=== PATIENT | female | born 1970 | race Caucasian/White ===

== ENCOUNTER 2022-01-25 10:14 | Outpatient (REF) | payer OTHER, SELFPAY ==
[2022-01-25 11:42] LABS: Creatinine Urine 159.73 mg/dL; Microalbum/Creatinine Ratio Ur 33.1 ug/mg cr
[2022-01-25 12:25] LABS: Cholesterol 180 mg/dL; HDL Cholesterol 45 mg/dL; LDL Cholesterol Calculated 114 mg/dl; Triglycerides 105 mg/dL
== END 2022-01-25 10:15 | disposition home or self-care (01) ==
LOC: HO.HMGCLDS 10:14
PROVIDERS: PCP Internal Medicine; Visit Provider Internal Medicine
DX: E11.65 Type 2 diabetes mellitus with hyperglycemia (principal); E66.01 Morbid (severe) obesity due to excess calories; Z68.35 Body mass index [BMI] 35.0-35.9, adult
CPT/HCPCS: 36415; 80061; 82043

== ENCOUNTER 2022-02-14 07:19 | Outpatient (REF) | payer OTHER, SELFPAY ==
--- NOTE | ~2022-02-14 | MM_ITS ---
EXAMINATION: MM SCREENING DIGITAL BREAST TOMOSYNTHESIS, BILATERAL CLINICAL INFORMATION: Screening. Asymptomatic. Age 51. No prior breast imaging. No known family history breast cancer. The lifetime risk of breast cancer based on the Tyrer-Cuzick Model is 11%. COMPARISON: None (current study represents initial baseline exam). TECHNIQUE: Digital breast tomosynthesis is performed in both the craniocaudal and mediolateral oblique views along with computer-aided detection (CAD). Synthesized 2D images are generated from the tomosynthesis. Additional exaggerated right CC view is provided. FINDINGS: There are scattered areas of fibroglandular density (ACR BI-RADS breast composition Category b). Breast tissue composition borders on heterogeneously dense. There is a circumscribed superficial lesion likely intradermal at the posterior 7:00 right breast measuring approximately 1.3 x 1.4 cm. As this represents initial baseline exam, patient will be recalled for targeted ultrasound to further characterize. There is mild right nipple retraction on MLO view. No visible none profile on CC view. The remainder of the breasts show no significant mass or architectural abnormality or abnormal calcifications. The axilla are unremarkable. MM/MM tomosynthesis screening BI IMPRESSION: Right: -Probable intradermal lesion posterior 7:00 right breast , 1.4 cm - will obtain ultrasound. -Mild right nipple retraction on MLO - will obtain additional views. Left: -No mammographic evidence of malignancy. ASSESSMENT: BI-RADS 0: Incomplete - Need Additional Imaging Evaluation RECOMMENDATION: 1. Additional views of the right breast (CC anterior- nipple in profile, ML anterior- nipple in profile). 2. Targeted ultrasound right breast. 3. Radiology department staff will contact the patient for additional imaging. This patient's information was entered into a reminder system with a target due date for their next mammogram.
== END 2022-02-14 07:20 | disposition home or self-care (01) ==
LOC: HO.MAMMO 07:19
PROVIDERS: PCP Internal Medicine; Visit Provider Internal Medicine
DX: Z12.31 Encounter for screening mammogram for malignant neoplasm of breast (principal)
CPT/HCPCS: 77063; 77067

== ENCOUNTER 2022-02-21 08:52 | Outpatient (RCR) | payer OTHER, SELFPAY | END 2022-03-13 16:28 | disposition home or self-care (01) | LOC: HO.WCC 08:52 | PROVIDERS: PCP Internal Medicine; Visit Provider Surgery | DX: E11.621 Type 2 diabetes mellitus with foot ulcer (principal); L97.512 Non-pressure chronic ulcer of other part of right foot with fat layer exposed; Z79.84 Long term (current) use of oral hypoglycemic drugs | CPT/HCPCS: 11042; 99212 ==

== ENCOUNTER 2022-03-26 14:59 | Outpatient (REF) | payer OTHER, SELFPAY ==
--- NOTE | ~2022-03-26 | MM_ITS ---
EXAMINATION: MM DIAGNOSTIC DIGITAL BREAST TOMOSYNTHESIS, RIGHT US DIAGNOSTIC ULTRASOUND BREAST, RIGHT CLINICAL INFORMATION: Recall from baseline exam for mild right nipple retraction, and circumscribed probable intradermal lesion posterior 7:00 right breast. COMPARISON: Mammography: 02/14/2022 (baseline). TECHNIQUE: Digital breast tomosynthesis is performed. 2D images are generated from the tomosynthesis. The following views are obtained: Right CC and right ML, nipple in profile. Ultrasound right breast is targeted to the nodule posterior 7:00 position. Grayscale imaging and color Doppler are performed without and with harmonics. FINDINGS: There are scattered areas of fibroglandular density (ACR BI-RADS breast composition Category b). The additional views right breast demonstrate no persistent nipple retraction and no retroareolar mass or architectural abnormality. Ultrasound right breast demonstrates circumscribed hypoechoic mass merging with the deep dermis measuring 1.5 x 1.0 x 1.4 cm and corresponding to the nodule 7:00 posterior position near inframammary fold. There is increased through-transmission of sound and expected claw sign with the deep dermis. No internal color flow. No hyperemia. Results are discussed with the patient at time of visit. Patient notes that the intradermal nodule has been present for years without change. MM/MM tomosynthesis added views R IMPRESSION: -Additional mammographic views anterior right breast show no abnormality. -Intradermal lesion 1.5 cm posterior 7:00 right breast near inframammary fold consistent with sebaceous cyst. ASSESSMENT: BI-RADS 2: Benign RECOMMENDATION: Routine annual mammography screening due in 12 months. This patient's information was entered into a reminder system with a target due date for their next mammogram.
== END 2022-03-26 15:00 | disposition home or self-care (01) ==
LOC: HO.MAMMO 14:59
PROVIDERS: Visit Provider Internal Medicine
DX: N63.13 Unspecified lump in the right breast, lower outer quadrant (principal)
CPT/HCPCS: 76642; 77061; 77065

== ENCOUNTER 2022-04-26 06:06 | Outpatient (REF) | payer OTHER, SELFPAY ==
[2022-04-26 11:54] LABS: Alanine Aminotransferase 14 U/L (0-31); Anion Gap 15 (12-20); Aspartate Amino Transferase 18 U/L (5-31); Blood Urea Nitrogen 19 mg/dL (9-16); Calcium 8.9 mg/dL (8.4-10.2); Carbon Dioxide 27 mmol/L (22-29); Chloride 100 mmol/L (96-108); Cholesterol 118 mg/dL; Estimated Glomerular Filt Rate > 60; Glucose Fasting 107 mg/dL (60-99); HDL Cholesterol 40 mg/dL; LDL Cholesterol Calculated 54 mg/dl; Potassium 4.4 mmol/L (3.3-5.1); Sodium 138 mmol/L (135-145); Triglycerides 120 mg/dL
[2022-04-26 11:59] LABS: Estimated Average Glucose 126 mg/dL
== END 2022-04-26 06:07 | disposition home or self-care (01) ==
LOC: HO.HMGCLDS 06:06
PROVIDERS: PCP Internal Medicine; Visit Provider Internal Medicine
DX: E66.01 Morbid (severe) obesity due to excess calories (principal); Z68.35 Body mass index [BMI] 35.0-35.9, adult; E11.65 Type 2 diabetes mellitus with hyperglycemia
CPT/HCPCS: 36415; 80048; 80061; 83036; 84450; 84460

== ENCOUNTER 2022-08-27 08:10 | Outpatient (REF) | payer OTHER, SELFPAY ==
[2022-08-28 16:57] LABS: HPV mRNA E6/E7 rflx Not Detected (Not Detected)
== END 2022-08-27 08:11 | disposition home or self-care (01) ==
LOC: HO.LNP 08:10
PROVIDERS: PCP Internal Medicine; Visit Provider Advanced Practice Midwife
DX: Z01.419 Encounter for gynecological examination (general) (routine) without abnormal findings (principal); Z11.51 Encounter for screening for human papillomavirus (HPV)
CPT/HCPCS: 87624; 88142

== ENCOUNTER 2022-09-12 09:10 | Outpatient (REF) | payer OTHER, SELFPAY ==
[2022-09-12 12:06] LABS: Alanine Aminotransferase 13 U/L (0-31); Aspartate Amino Transferase 21 U/L (5-31); Cholesterol 154 mg/dL; HDL Cholesterol 52 mg/dL; LDL Cholesterol Calculated 85 mg/dl; Triglycerides 85 mg/dL
[2022-09-12 12:22] LABS: Vitamin D 25-OH Total 19.3 ng/mL (>30)
[2022-09-12 12:58] LABS: Creatinine Urine 37.99 mg/dL
[2022-09-12 13:10] LABS: Microalbum/Creatinine Ratio Ur 2329.5 ug/mg cr
== END 2022-09-12 09:11 | disposition home or self-care (01) ==
LOC: HO.HMGCLDS 09:10
PROVIDERS: PCP Internal Medicine; Visit Provider Internal Medicine
DX: Z00.01 Encounter for general adult medical examination with abnormal findings (principal); I10 Essential (primary) hypertension; E11.65 Type 2 diabetes mellitus with hyperglycemia; E78.5 Hyperlipidemia, unspecified
CPT/HCPCS: 36415; 80061; 82043; 82306; 84450; 84460

== ENCOUNTER → 2023-04-04 07:30 | Outpatient (BNV) | payer OTHER, SELFPAY | PROVIDERS: PCP Internal Medicine; Visit Provider Radiology Diagnostic Radiology | DX: Z12.31 Encounter for screening mammogram for malignant neoplasm of breast (principal) | CPT/HCPCS: 77063; 77067 ==

== ENCOUNTER 2023-04-04 07:35 | Outpatient (REF) | payer OTHER, SELFPAY | END 2023-04-04 07:36 | disposition home or self-care (01) | LOC: HO.MAMMO 07:35 | PROVIDERS: PCP Internal Medicine; Visit Provider Internal Medicine | DX: Z12.31 Encounter for screening mammogram for malignant neoplasm of breast (principal) | CPT/HCPCS: 77063; 77067 ==

== ENCOUNTER 2023-05-07 12:28 | Day surgery (SDC) | payer OTHER, SELFPAY ==
--- NOTE | 2023-05-06 08:51 | HO.ANESPROP2 ---
HPI - Anesthesia Eval Consult details Narrative: 52yo F for Colonoscopy PMFSH Active Problems Active Problems: All Active Problems (Updated 09/12/22 @ 08:51 by Briana Slaughter MD) Obesity (BMI 30-39.9) (Acute) Diabetes mellitus without complication, without long-term current use of insulin (Acute) Essential hypertension (Acute) Dyslipidemia (Acute) Past Medical History Medical History (Updated 09/12/22 @ 08:51 by Briana Slaughter MD) Obesity (BMI 30-39.9) Diabetes mellitus without complication, without long-term current use of insulin Essential hypertension Dyslipidemia Plantar ulcer of right foot Gestational diabetes Family History Family History Maternal Grandmother Pancreatic cancer Maternal Grandfather Esophageal cancer Surgical History Surgical History Hx of tubal ligation History of Hx of appendectomy Social History Social History Household Members: Spouse Housing: House Patient Tobacco Use Status: Never used Tobacco e-Cigarette/Vaping Use: Never Used service: No Current occupational status: employed Sexual orientation: Straight/Heterosexual Gender identity: Female Cognitive needs: No Hearing needs: No Vision needs: Yes Meds Allergies Allergy/AdvReac Type Severity Reaction Status Date / Time amoxicillin AdvReac Mild Rash Verified 09/12/22 08:26 Exam Exam Date and Time: May 06, 2023 0851 Assessment and Plan Assessment Anesthesia Assessment: Chart Reviewed
[2023-05-07 11:54] VITALS: BMI 36.3
[2023-05-07 12:35] VITALS: BP 198/85; PULSE 88; RESP 20; TEMP 36.1; O2SAT 99
[2023-05-07 12:55] LABS: Glucose, Whole Blood 85 mg/dL (60-115)
[2023-05-07 13:00] VITALS: BP 151/56
[2023-05-07] MEDS: Lactated Ringers 1,000 ML 100 ML IVCONT (13:09)
--- NOTE | 2023-05-07 13:20 | P.CONAN_ITS ---
[facility] Active Problems Active Problems: All Active Problems (Updated 09/12/22 @ 08:51 by Briana Slaughter MD) Obesity (BMI 30-39.9) (Acute) Diabetes mellitus without complication, without long-term current use of insulin (Acute) Essential hypertension (Acute) Dyslipidemia (Acute) Past Medical History Medical History Obesity (BMI 30-39.9) Diabetes mellitus without complication, without long-term current use of insulin Essential hypertension Dyslipidemia Plantar ulcer of right foot Gestational diabetes Functional capacity: independent ambulation Patient : No Family History Family History Maternal Grandmother Pancreatic cancer Maternal Grandfather Esophageal cancer Family history of problems with anesthesia: No Surgical History Surgical History Hx of tubal ligation History of Hx of appendectomy History of Problems with Anesthesia: No Social History Social History Household Members: Spouse Housing: House Patient Tobacco Use Status: Never used Tobacco e-Cigarette/Vaping Use: Never Used Are you DNR?: No Advance Directives: No Advance Directives Information Provided: Yes Recently lost weight without trying: No Nutrition Risks: No Nutritional Risk service: No Current occupational status: employed Sexual orientation: Straight/Heterosexual Gender identity: Female Cognitive needs: No Hearing needs: No Vision needs: Yes Meds Allergies Allergy/AdvReac Type Severity Reaction Status Date / Time amoxicillin AdvReac Mild Rash Verified 09/12/22 08:26 Active Medications: Current Medications Lactated Ringer's (Lr) 1,000 mls @ 100 mls/hr IVCONT .Q10H KAYLAN Last Admin: 05/07/23 13:09 Dose: 100 mls/hr Exam Exam Date and Time: May 07, 2023 1320 Height,Weight and Vital Signs: Height 5 ft 7.5 in Weight 106.594 kg Last Vital Signs Temp 97 F 05/07/23 12:35 Pulse 88 05/07/23 12:35 Resp 20 05/07/23 12:35 BP 151/56 H 05/07/23 13:00 Pulse Ox 99 05/07/23 12:35 O2 Del Method Room Air 05/07/23 12:35 Pertinent Lab Results Pertinent Lab Results: Laboratory Tests 05/07/23 12:49 POC Glucose 85 Airway Mallampati Class: II TM Dist: >3cm Neck ROM: Full Heart: RRR Lungs: CTA Assessment and Plan Assessment Anesthesia Assessment: Anesthesia Plan Discussed Final Anesthetic Review Family History of Problems with Anesthesia: No History of Problems with Anesthesia: No NPO: Yes ASA Class: III Final Preanesthetic Review: Meds/Allgs Chart Reviewed, Consent Obtained/Reviewed and Anes Risks/Benef Reviewed Patient Risk: Low Procedure Risk: Low Anesthetic Plan Anesthetic Plan: MAC: Disposition: Standard PACU
--- NOTE | 2023-05-07 13:35 | MHC.SHP ---
Pre-Procedural Eval Section A Date of Service: 05/07/23 Section B Chief Complaint: Screening Details of Present Illness: see H*P no changes Relevant Family History (Specify if Yes): No Relevant Social History: None Medical History: No relevant PMH History of Previous Operations: No relevant previous surgery Allergies: Allergies Allergy/AdvReac Type Severity Reaction Status Date / Time amoxicillin AdvReac Mild Rash Verified 09/12/22 08:26 Review of Systems Sugical H&P ROS: Negative: Constitution, Cardiovascular, Respiratory, Neurological, Psychiatric, Hem-Onc, Allergic/Immunologic, Gastrointestinal, Genitourinary, Musculoskeletal, Integumentary, Endocrine and Eyes/Ears/Nose/Throat Exam Surgical H&P Exam: Normal: HEENT, Normal: Heart, Normal: Lungs, Normal: Extremities, Normal: Abdomen, Normal: Skin and Normal: Neurological Plan Diagnosis/Plan: Unchanged I have reviewed the history and physical and performed a pertinent physical examination on my patient. No changes have occurred unless specified. Time Spent With Patient Time: Total time managing care of this patient today ____ minutes.
--- NOTE | 2023-05-07 13:59 | PM.OP ---
Brief Operative Note Date of Service: 05/07/23 Pre-op diagnosis: screening Post-op diagnosis: same Surgeon: Ton Gonsalez Anesthesia: MAC Was an Patient Access Representative used for this Procedure?: No Estimated blood loss (mL): 0 Pathology: none sent Condition: stable Disposition: PACU
[2023-05-07 14:05] VITALS: BP 105/55; PULSE 76; RESP 16; TEMP 36.3; O2SAT 96
--- NOTE | 2023-05-07 14:05 | HO.POSTANES ---
Post Anesthesia Evaluation Post Anesthesia Evaluation Date of Service: 05/07/23 Vital Signs: Vital Signs Temp Pulse Resp BP Pulse Ox O2 Del Method 05/07/23 13:00 151/56 H 05/07/23 12:35 97 F 88 20 198/85 H 99 Room Air Anesthesia: Monitored Mental Status: Awake Pain Control: Satisfactory Nausea/Vomiting: None Hydration: Adequate Anesthesia-Related Issues: No Anes. Related Issues
[2023-05-07 14:20] VITALS: BP 143/68; PULSE 76; RESP 18; TEMP 36.6; O2SAT 98
--- NOTE | 2023-05-07 23:51 | OP_ITS ---
DATE OF SERVICE: 05/07/2023 SURGEON: Ton Gonsalez MD INDICATIONS: Colon cancer screening. PREOPERATIVE DIAGNOSIS: POSTOPERATIVE DIAGNOSIS: PROCEDURE PERFORMED: Colonoscopy to the terminal ileum. ESTIMATED BLOOD LOSS: COMPLICATIONS: ANESTHESIA: Monitored anesthesia care. ASSISTANTS: SPECIMENS: DESCRIPTION OF PROCEDURE: A history and physical was performed. The risks and benefits of the procedure were explained to the patient. Informed consent was obtained. The patient was placed in the left lateral decubitus position. A digital rectal exam was performed and was found to be normal. The Olympus pediatric video colonoscope was introduced into the rectum and advanced to the cecum. The cecum was identified by transillumination, palpation, and identification of ileocecal valve. Examination was performed. The scope was removed. She tolerated the procedure well and was returned to the recovery area in stable condition. FINDINGS: The terminal ileum was examined and appeared normal. The visualized colonic mucosa was normal. The quality of the prep was good. There was some liquid stool remaining in the right and transverse colon. This was washed and suctioned. No polyps were identified. The mucosa appeared normal. Retroflexed examination was normal. IMPRESSION: Normal colonoscopy. RECOMMENDATION: 1. Follow up as needed. 2. Repeat colonoscopy is recommended in 10 years for average risk individuals. MD HOLA Adame/ADELINEL / [id number]
== END 2023-05-07 14:50 | disposition home or self-care (01) ==
PROVIDERS: PCP Internal Medicine; Visit Provider Internal Medicine Gastroenterology
PROC: 0DJD8ZZ Inspection of Lower Intestinal Tract, Via Natural or Artificial Opening Endoscopic (ICD-10-PCS; CPT 45378; principal; 2023-05-07 13:40)
DX: Z12.11 Encounter for screening for malignant neoplasm of colon (principal); I10 Essential (primary) hypertension; E78.5 Hyperlipidemia, unspecified; E11.9 Type 2 diabetes mellitus without complications; E66.9 Obesity, unspecified; Z68.36 Body mass index [BMI] 36.0-36.9, adult; Z79.84 Long term (current) use of oral hypoglycemic drugs; Z79.899 Other long term (current) drug therapy; Z88.1 Allergy status to other antibiotic agents
CPT/HCPCS: 45378; 82947

== ENCOUNTER 2023-07-04 10:38 | Outpatient (REF) | payer OTHER, SELFPAY ==
[2023-07-04 13:37] LABS: Appearance Urine Cloudy; Color Urine Yellow; Glucose Urine UA Negative (Negative); Leukocyte Esterase Urine Moderate (2+) (Negative); Nitrite Urine Negative (Negative); UMIC TRIGGER UACC YES; Urine Blood Large (3+) (Negative); Urine Ketones Negative (Negative); Urine Protein 100 (2+) mg/dL (Neg-Trace)
[2023-07-04 13:40] LABS: Bacteria Urine 4+ (None Seen); Hyaline Casts Urine 0-2 /LPF (0-2); RBC Urine >20 /HPF (0-2); Squamous Epithelial Cell Urine 0-2 /HPF (0-2); UACC Culture Trigger YES; WBC Urine >50 /HPF (0-5)
[2023-07-04 14:19] LABS: Vitamin D 25-OH Total 46.6 ng/mL (>30)
== END 2023-07-04 10:39 | disposition home or self-care (01) ==
LOC: HO.HMGCLDS 10:38
PROVIDERS: PCP Internal Medicine; Visit Provider Internal Medicine
DX: E66.9 Obesity, unspecified (principal); E11.9 Type 2 diabetes mellitus without complications; I10 Essential (primary) hypertension; E78.5 Hyperlipidemia, unspecified; R30.0 Dysuria
CPT/HCPCS: 36415; 81001; 82306; 87086; 87088; 87186

== ENCOUNTER 2023-09-13 06:40 | Outpatient (REF) | payer OTHER, SELFPAY ==
[2023-09-13 11:29] LABS: Appearance Urine Clear; Color Urine Yellow; Glucose Urine UA Negative (Negative); Leukocyte Esterase Urine Small (1+) (Negative); Nitrite Urine Negative (Negative); PH 5.5 (5.0-9.0); Specific Gravity - Urine 1.015 (1.005-1.025); UMIC TRIGGER UACC YES; Urine Blood Trace (Negative); Urine Ketones Negative (Negative); Urine Protein 100 (2+) mg/dL (Neg-Trace)
[2023-09-13 11:35] LABS: Bacteria Urine 1+ (None Seen); Hyaline Casts Urine 0-2 /LPF (0-2); UACC Culture Trigger YES; WBC Urine >50 /HPF (0-5)
[2023-09-13 11:42] LABS: Creatinine Urine 84.78 mg/dL; Microalbum/Creatinine Ratio Ur 575.6 ug/mg cr (<30)
[2023-09-13 11:56] LABS: Estimated Average Glucose 94 mg/dL; Hemoglobin A1C 59.5644 umol/L; Hemoglobin A1c % 4.9 % (<6.0)
[2023-09-13 12:05] LABS: Alanine Aminotransferase 8 U/L (0-31); Anion Gap 15 (12-20); Aspartate Amino Transferase 18 U/L (5-31); Blood Urea Nitrogen 14 mg/dL (9-16); Calcium 9.2 mg/dL (8.4-10.2); Carbon Dioxide 22 mmol/L (22-29); Chloride 105 mmol/L (96-108); Cholesterol 99 mg/dL (<200); Estimated Glomerular Filt Rate > 60; Glucose Fasting 90 mg/dL (60-99); HDL Cholesterol 42 mg/dL (>40); LDL Cholesterol Calculated 42 mg/dL (<100); Potassium 4.1 mmol/L (3.3-5.1); Sodium 138 mmol/L (135-145); Triglycerides 76 mg/dL (<150)
== END 2023-09-13 06:41 | disposition home or self-care (01) ==
LOC: HO.HMGCLDS 06:40
PROVIDERS: PCP Internal Medicine; Visit Provider Internal Medicine
DX: Z00.01 Encounter for general adult medical examination with abnormal findings (principal); E11.65 Type 2 diabetes mellitus with hyperglycemia; I10 Essential (primary) hypertension; E66.9 Obesity, unspecified; E78.5 Hyperlipidemia, unspecified; R30.0 Dysuria
CPT/HCPCS: 36415; 80048; 80061; 81001; 82043; 82570; 83036; 84450; 84460; 87086; 87088; 87186

== ENCOUNTER 2023-09-16 07:57 | Outpatient (AMB) | payer OTHER, SELFPAY ==
[2023-09-16 08:15] VITALS: BP 140/88; PULSE 73; O2SAT 99; BMI 38.0
--- NOTE | 2023-09-16 08:15 | A.OFFPC_ITS ---
Vital Signs 09/16/23 08:15 Height 5 ft 8 in Weight 250 lb BMI 38.0 BP 140/88 H Blood Pressure Location Rt brachial Position Sitting Pulse 73 Pulse Source Pulse Oximeter Pulse Oximetry (%) 99 Oxygen Delivery Method Room Air Intake Visit Reasons: Annual PE Intake Note: Pt is here today for her PE: last pap 08/27/22, mammogram 04/04/23 and colonoscopy 05/07/23 Is last menstrual period known: Yes Last menstrual period: 05/31/23 Allergies amoxicillin Adverse Reaction (Mild, Verified 09/16/23 08:22) Rash Medication List - Last Reconciled 09/16/23 by Briana Slaughter MD blood-glucose meter (Yi Chang Ou Sai ITTouch Ultra2 Meter) As directed lancets test blood sugar twice a day lisinopril 5 mg PO DAILY metformin 1,000 mg PO BIDWMEAL OneTouch Ultra Test (blood sugar diagnostic) test blood sugar twice a day NS rosuvastatin 5 mg PO 2XW 90 days Tobacco use date assessed: 09/16/23 Dental Screening Dental Screen Date: 09/16/23 Did you have a dental visit in the last 12 months?: Yes Did you have a dental problem in the last 6 months where you did not have access to dental care?: Yes Was dental information given to patient?: Patient has dentist HPI Annual PE HPI Details 52-year-old lady here today for physical exam. She has diabetes mellitus currently on metformin 1000 mg 1 tablet twice a day, and has hyperlipidemia currently taking rosuvastatin 5 mg twice a week and takes lisinopril 5 mg once a day for hypertension. Her blood pressure is noted to be high in the last 2 visits. Denies any chest pain, lightheadedness, shortness of breath has been compliant with taking her medications and diet , alternate using the treadmill and her exercise bike, but gets frustrated that she has not losing weight... She is up-to-date with her screening mammogram, cervical cancer screening and colon cancer screening last diabetic retinopathy screening was done 02/28/2022 with no retinopathy seen. She has an appointment to see a new eye doctor in October 2023. She is perimenopausal, no hot flashes but last period was in May 2023. She has been feeling well but has been noticing swelling in both lower extremities especially at the end of work day, goes down when she elevates her legs. Denies any accompanying pain, no varicosities in lower extremity reported. [facility] Medical History Obesity (BMI 30-39.9) Diabetes mellitus without complication, without long-term current use of insulin Essential hypertension Dyslipidemia Plantar ulcer of right foot Gestational diabetes Surgical History Hx of tubal ligation History of Hx of appendectomy Family History Maternal Grandmother Pancreatic cancer Maternal Grandfather Esophageal cancer Social History Household Members: Spouse Housing: House Patient Tobacco Use Status: Never used Tobacco e-Cigarette/Vaping Use: Never Used service: No Current occupational status: employed Sexual orientation: Straight/Heterosexual Gender identity: Female Cognitive needs: No Hearing needs: No Vision needs: Yes Female Reproductive History Menstrual Date of last menstrual period: 05/31/23 Questionnaire PHQ-9 Over the last 2 weeks, how often have you been bothered by any of the following problems? 1. Little interest or pleasure in doing things: not at all 2. Feeling down, depressed, or hopeless: not at all 3. Trouble falling or staying asleep, or sleeping too much: not at all 4. Feeling tired or having little energy: not at all 5. Poor appetite or overeating: not at all 6. Feeling bad about yourself - or that you are a failure or have let yourself or your family down: several days 7. Trouble concentrating on things, such as reading the newspaper or watching television: not at all 8. Moving or speaking so slowly that other people could have noticed. Or the opposite - being so fidgety or restless that you have been moving around a lot more than usual: not at all 9. Thoughts that you would be better off or of hurting yourself in some way: not at all Total score: 1 Depression Screening Interpretation: Negative Depression Screening Done: Yes 38432 - PHQ-9 Billing: Yes Source: Developed by Drs. Sea Moran, Mookie Kingsley and colleagues, with an educational marquise from [employer]. Thrive Questionnaire Date Thrive assessed: 09/12/22 I am a: Patient What is your living situation today?: I have a steady place to live Within the past 12 months, did the food you bought not last and you didn't have the money to get more?: Never true Within the past 12 months, did you worry whether your food would run out before you got money to buy more?: Never true Do you have trouble paying for medicines?: No Do you have trouble getting transportation to medical appointments?: No Do you have trouble paying your heating and electricity bill?: No Do you have trouble taking care of your child, family member or friend?: No Do you have trouble with day-to-day activities such as bathing, preparing meals, shopping, managing finances, etc.?: No Are you currently unemployed and looking for a job?: No Are you interested in more education?: No Please select the resources that you would like help with: None THRIVE Score: 0 AUDIT C Alcohol Use Questionnaire (AUDIT-C) 1. How often do you have a drink containing alcohol?: Monthly or less 2. How many drinks containing alcohol do you have on a typical day when you are drinking?: 1 or 2 3. How often do you have six or more drinks on one occasion?: Never Total Score: 1 ROMEO-7 AMB Questionnaire ROMEO-7 Date ROMEO - 7 assessed: 09/16/23 Feeling nervous, anxious, or on edge: 0 = Not at all Not being able to stop or control worryin = Not at all Worrying too much about different things: 0 = Not at all Trouble relaxin = Not at all Being so restless that it is hard to sit still: 0 = Not at all Becoming easily annoyed or irritable: 0 = Not at all Feeling afraid as if something awful might happen: 0 = Not at all Total ROMEO-7 score (0-4 normal; 5-9 mild; 10-14 moderate; 15-21 severe): 0 Source: Developed by Drs. Sea Moran, Mookie Kingsley and colleagues, with an educational marquise from [employer]. ROMEO-7 Assessment Billing ROMEO-7 Assessment Tool: ROMEO-7 Assessment 48884 Review of Systems Const Denies body aches, Denies fatigue, Denies fever(s), Denies headache(s) and Denies weakness Eyes Denies change in vision ENT Denies dizziness, Denies headache(s), Denies nasal congestion, Denies nasal discharge and Denies sore throat Card Denies chest pain, Denies lightheadedness, Denies palpitations and Denies dyspnea Resp Denies chest congestion, Denies cough and Denies dyspnea GI Denies abdominal pain, Denies change in bowel habits and Denies heartburn Details: Recently treated for urinary tract infection in June 2023, still gets occasional running at end of urination. Denies hematuria, Denies urinary frequency, Denies hot flashes, Denies nipple discharge, Denies dysuria, Denies prolapse symptoms, Denies urinary urgency and Denies vaginal discharge Musc Reports no additional complaints Skin/Breast Details: No breast mass, no nipple discharge no breast pain, no rash Denies nipple discharge Neuro Denies dizziness, Denies headache(s) and Denies weakness Psych Reports no additional complaints Endo Denies fatigue, Denies polydipsia, Denies polyuria and Denies palpitations Олег/Lymph Reports no additional complaints Aller/Immun Reports no additional complaints Physical exam (Primary Care) BMI result Body Mass Index 38.0 BMI Assessment/Plan discussion: High BMI High, discussed plan: lifestyle, weight reduction, dietary and physical activity Tobacco/Smoking Status: Tobacco use Status Tobacco use date assessed 09/16/23 09/16/23 08:16 Patient Tobacco Use Status Never used Tobacco 09/16/23 08:16 e-Cigarette/Vaping Use Never Used 09/16/23 08:16 Depression Screening Interpretation: Negative Thrive Assessment: Date of Thrive Assessment Date Thrive assessed 09/12/22 09/16/23 08:16 Const General: comfortable, no acute distress and alert Nutritional Appearance: obese Orientation/consciousness: patient oriented x3 HENMT Head: Yes normocephalic and Yes atraumatic Ears: hearing grossly normal bilaterally, TM's normal bilaterally and EAC's normal General nose exam: Normal external nose present Face and sinus: Yes face symmetric Mouth: Normal oral and palatal mucosa present, tongue normal, oropharynx normal and moist mucous membranes Throat: Yes posterior oropharynx normal Eyes General: appearance normal, both eyes and all related structures Neck Other: Supple, no lymphadenopathy, thyroid gland nonpalpable Chest Chest palpation & inspection: normal inspection of the chest Breast/axilla inspection: normal inspection of the breasts Breast/axilla palpation: normal palpation of the breasts Resp Effort & Inspection: normal respiratory effort and able to speak in complete sentences Auscultation: clear to auscultation bilaterally Cardio Other: S1-S2 present regular rate and rhythm GI Other: Normal bowel sounds, soft, nontender, no mass palpated Auscultation: normal bowel sounds General: Yes no CVA tenderness and Yes deferred (Sees [facility] for her routine Pap and pelvic exam currently up-to-date) Back/Spine/Pelvis Back: no CVA tenderness and No back tenderness Skin Other: Goes to Dr. Reddy for her annual diabetes foot exam General skin exam: no rashes or lesions noted Neuro General: patient oriented x3, gait normal, tone normal, moves all extremities, Normal light touch and pain sensation, no focal motor deficits and CN's II-XI intact bilaterally Gait exam (Neuro): Normal gait present Extrem Other: Trace swelling ankles General: Yes full ROM, Yes no joint enlargement, Yes no calf tenderness and Yes normal gait Psych Appearance: grossly normal and well kempt Mental Status: mental status grossly normal Speech and movement: Normal speech and movement present Affect: normal affect Attitude: cooperative Thought process: Normal thought process present Thought content: Normal thought content present Office Procedures Flu Questionnaire Does the patient have a severe egg allergy?: No Does the patient have severe life threatening allergies?: No Does the patient have a fever or illness today?: No Has the patient ever had Guillain-C[place]an[place] Syndrome?: No Has the patient ever had any past reaction to a flu shot?: No Immunizations flu vacc [id number] 6mos up(PF) 60 mcg(15 mcgx4)/0.5 mL IM syringe Performing Provider: Briana Slaughter MD Performing Location: [facility] [place] [facility] Administered by: Sheila Elliott CMA on 09/16/23 08:54 Dose Route Admin Location Dispensed Lot Number Expiration Date NDC Etched Circuit Processor 0.5 mL IM Right Deltoid 0.5 mL [id number] 02/15/24 90624-114-11 [employer] VIS Given Date VIS Provided VIS Publication Date 09/16/23 Single Vaccine 21 Eligibility Eligibility Date Funding Source Not VFC Eligible 09/16/23 Private Results Reviewed Results Reviewed: SPEC : [id number] ALEXANDER: 09/13/23 STATUS: COMP REQ : [id number] RECD: 09/13/23-[address]: Briana Slaughter MD COMP: 09/13/231205 ENTERED: 09/13/[address]: ORDERED: Met Prof Fast, AST, ALT, Lipid Panel Test Result Flag Reference Sodium 138 135-145 mmol/L Potassium 4.1 3.3-5.1 mmol/L CL 105 96-108 mmol/L CO2 22 22-29 mmol/L Gap 15 12-20 BUN 14 9-16 mg/dL Creat 0.72 0.5-1.4 mg/dL EGFR > 60 NOTE: For -British individuals, multiply the result by 1.210. Chronic Kidney Disease: Estimated GFR < 60 mL/min/1.73m2 Severe Kidney Disease: Estimated GFR < 15 mL/min/1.73m2 FBS 90 60-99 mg/dL CA 9.2 8.4-10.2 mg/dL AST (GOT) 18 5-31 U/L ALT (GPT) 8 0-31 U/L Triglyceride 76 <150 mg/dL Desirable Triglyceride: less than 150 mg/dL Borderline High Triglyceride 150-199 mg/dL High Triglyceride: 200-499 mg/dL Very High Triglyceride: greater than or equal to 5OO mg/dL Cholesterol 99 <200 mg/dL Desirable Cholesterol: less than 200 mg/dL Borderline High Cholesterol: 200-239 mg/dL High Cholesterol: greater than 239 mg/dL LDL Calculated 42 <100 mg/dL Desirable LDL: less than 100 mg/dL Near Optimal/Above Optimal LDL: 110-129 mg/dL Borderline High LDL: 130-159 mg/dL High LDL: 160-189 mg/dL Very High LDL: greater than or equal to 190 mg/dL HDL 42 >40 mg/dL Desirable HDL: greater than 40 mg/dL Note: This HDL assay may give artificially ENTERED: 09/13/[address]: ORDERED: UACC w Micros QUERIES: Source: Urine, Clean Catch Test Result Flag Reference Ur Color Yellow Ur Appear Clear PH 5.5 5.0-9.0 Ur Glu Negative Negative mg/dL Urine Blood Trace H Negative Spec [place] Ur 1.015 1.005-1.025 Urine Protein 100 (2+) H Neg-Trace mg/dL Urine Ketones Negative Negative mg/dL Ur Nitrite Negative Negative Ur Katina Esterase Small (1+) H Negative Ur RBC 6-10 H 0-2 /HPF Ur WBC >50 H 0-5 /HPF Ur Squam Epi 6-10 0-2 /HPF Ur Bact 1+ None Seen Ur Hyaline Architectural Designer 0-2 0-2 /LPF Laboratory Tests 09/13/23 06:46 Urine Creatinine 84.78 Urine Microalbumin 488.0 Microalb/Creat Ratio 575.6 H Assessment and Plan Assessment & Plan (1) Annual visit for general adult medical examination with abnormal findings: Code(s): Z00.01 - Encounter for general adult medical examination with abnormal findings Plan: Will check appropriate labs. Continue with regular dental visit every 6 months and regular eye exams yearly for her retinopathy screening. Take adequate calcium in diet and vitamin-D 3 at 2000 IU per cap once a day, in addition to weight-bearing exercises to help maintain good muscle tone and weight control. Instructed to do self-breast exam, and continue with yearly mammogram, sees [facility] for her routine Pap and pelvic exam. Up-to-date with all her vaccinations, has an appointment to get her COVID booster, and flu vaccine given today. Patient is up-to-date with her screening colonoscopy (2) Obesity (BMI 30-39.9): Code(s): E66.9 - Obesity, unspecified Plan: Recommended focusing on improving your health instead of dieting. : Eat Mediterranean diet, limit foods high in fat, sugar, and calories, eat slowly, pay attention to portion sizes, plan your meals ahead of time, continue with regular physical activity, uses a treadmill and her exercise bike regularly. (3) Diabetes mellitus without complication, without long-term current use of insulin: Code(s): E11.9 - Type 2 diabetes mellitus without complications Plan: Recent lab results reviewed with patient, with sugar and hemoglobin A1c stable and at goal . Will continue on metformin a 1000 mg twice a day, discussed starting maybe either [place] or [facility], but patient wants to continue on present treatment. continue to check fasting blood sugar at home, maintain log and bring to next appointment for review. Reinforced diabetic diet and regular exercise with patient. Gets yearly diabetes retinopathy screening, has an appointment to see her new word processing operator in October 2023.. Patient advised to inspect feet daily, for any signs of injury, callus or infection. Compliance with diet and regular exercise again stressed. Blood pressure goal is less than 130/80, goal LDL is less than 100 and goal hemoglobin A1c is less than 7% follow-up appointment made in--3-months, after fasting labs done. Scheduled to Alise HDZ vaccine (4) Essential hypertension: Code(s): I10 - Essential (primary) hypertension Plan: Blood pressure not at goal of less than 130/90. Continue with lisinopril 5 mg daily and added hydrochlorothiazide 12.5 mg per tablet taken once in the way in the morning. Reinforced adherence to low-salt diet and getting regular exercise. See nurse navigator in 2 weeks to check blood pressure, continue blood pressure monitoring at home as well and keep a log of the readings. (5) Dyslipidemia: Code(s): E78.5 - Hyperlipidemia, unspecified (6) Urinary tract infection: Code(s): N39.0 - Urinary tract infection, site not specified Qualifiers: Urinary tract infection type: site unspecified Plan: Prescription sent for nitrofurantoin 100 mg per capsule to take once every 12 hours for 7 days. Stay well-hydrated. Return to clinic if no improvement of symptoms noted Orders: Orders Hemoglobin A1c 3 Months E11.9 - Type 2 diabetes mellitus without complications, E66.9 - Obesity, unspecified, E78.5 - Hyperlipidemia, unspecified, I10 - Essential (primary) hypertension Influenza 2619-1225 Immunization Today Z23 - Encounter for immunization Basic Metabolic Panel Fasting 3 Months E11.9 - Type 2 diabetes mellitus without complications, E66.9 - Obesity, unspecified, E78.5 - Hyperlipidemia, unspecified, I10 - Essential (primary) hypertension Alanine Aminotransferase 3 Months E11.9 - Type 2 diabetes mellitus without complications, E66.9 - Obesity, unspecified, E78.5 - Hyperlipidemia, unspecified, I10 - Essential (primary) hypertension Aspartate Amino Transferase 3 Months E11.9 - Type 2 diabetes mellitus without complications, E66.9 - Obesity, unspecified, E78.5 - Hyperlipidemia, unspecified, I10 - Essential (primary) hypertension Lipid Panel 3 Months E11.9 - Type 2 diabetes mellitus without complications, E66.9 - Obesity, unspecified, E78.5 - Hyperlipidemia, unspecified, I10 - Essential (primary) hypertension Medications: New nitrofurantoin monohyd/m-cryst 100 mg must administer with a meal/food 100 mg PO Q12H 14 caps 0RF 7 days hydrochlorothiazide 12.5 mg PO DAILY 90 tabs 1RF Refilled rosuvastatin 5 mg PO 2XW 26 tabs 3RF 90 days E11.65 - Type 2 diabetes mellitus with hyperglycemia, E66.01 - Morbid (severe) obesity due to excess calories, Z68.35 - Body mass index [BMI] 35.0-35.9, adult lisinopril 5 mg PO DAILY 90 tabs 1RF E11.65 - Type 2 diabetes mellitus with hyperglycemia metformin 1,000 mg PO BIDWMEAL 180 tabs 3RF Coding Level of Care Code Est Pt Prev Care 40-64y(14250) Diagnoses Annual visit for general adult medical examination with abnormal findings Z00.01 Obesity (BMI 30-39.9) E66.9 Diabetes mellitus without complication, without long-term current use of insulin E11.9 Essential hypertension I10 Dyslipidemia E78.5 Urinary tract infection N39.0 Urinary tract infection type: site unspecified Additional Codes ROMEO-7 Assessment Billing - ROMEO-7 Assessment Tool: ROMEO-7 Assessment 17417 ([id number])
== END 2023-09-16 08:57 | disposition home or self-care (01) ==
PROVIDERS: Visit Provider Internal Medicine
DX: Z00.01 Encounter for general adult medical examination with abnormal findings (principal); E66.9 Obesity, unspecified; E11.69 Type 2 diabetes mellitus with other specified complication; Z23 Encounter for immunization; E78.5 Hyperlipidemia, unspecified; Z68.38 Body mass index [BMI] 38.0-38.9, adult; I10 Essential (primary) hypertension; N39.0 Urinary tract infection, site not specified
CPT/HCPCS: 90471; 90686; 99213; 99396

== ENCOUNTER 2023-10-17 08:00 | Outpatient (AMB) | payer OTHER, SELFPAY ==
--- NOTE | 2023-10-17 08:05 | MHC.OFFVIS ---
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 She is doing well with no concerns. Attempting to eat a healthy diet with calcium and vitamin D and stays active with exercise. Currently sexually active. Denies any irritation, some dryness. No menses since May. Last pap smear; 2022. Last mammogram; 2022. Colonoscopy is UTD. Denies any family history of breast, ovarian or colon cancer. [facility] Medical History Obesity (BMI 30-39.9) Diabetes mellitus without complication, without long-term current use of insulin Essential hypertension Dyslipidemia Plantar ulcer of right foot Gestational diabetes Surgical History Hx of tubal ligation History of Hx of appendectomy Family History Maternal Grandmother Pancreatic cancer Maternal Grandfather Esophageal cancer Social History Household Members: Spouse Housing: House Patient Tobacco Use Status: Never used Tobacco e-Cigarette/Vaping Use: Never Used service: No Current occupational status: employed Sexual orientation: Straight/Heterosexual Gender identity: Female Cognitive needs: No Hearing needs: No Vision needs: Yes Female Reproductive History Menstrual Age of Menarche: 11 Duration of menses: 3-5 days control method: none Menopause type: natural Age of menopause: 52 Total pregnancies: 2 Full term: 2 Number of Living Children: 2 Date of last pap smear: 08/27/22 History of abnormal pap smear: No History of STI: No Date of Mammogram: 04/04/23 History of abnormal mammogram: No Review of Systems Const All systems reviewed & are unremarkable except as noted in HPI and below Reports as per HPI Eyes Reports no additional complaints ENT Reports no additional complaints Card Reports no additional complaints Resp Reports no additional complaints GI Reports as per HPI and Reports no additional complaints Reports as per HPI Musc Reports no additional complaints Skin/Breast Reports as per HPI Neuro Reports no additional complaints Psych Reports no additional complaints Endo Reports no additional complaints Олег/Lymph Reports no additional complaints Aller/Immun Reports no additional complaints Physical Exam Vital Signs: Last Vital Signs BP 118/72 10/17/23 08:06 BMI result Body Mass Index 33.9 Const General: cooperative, healthy appearing, no acute distress, well developed and alert Orientation/consciousness: patient oriented x3 HEENT Head: Yes normal to inspection Eyes General: appearance normal, both eyes and all related structures Neck Neck: Yes normal visual inspection Thyroid: Thyroid normal Chest Chest palpation & inspection: normal inspection of the chest and other (no puckering, dimpling, peau de orange, retraction, discharge, masses) Breast/axilla inspection: normal inspection of the breasts Breast/axilla palpation: normal palpation of the breasts Resp Effort & Inspection: normal respiratory effort GI Inspection: Yes normal to inspection Palpation (GI): Soft to palpation Rectal Exam - Female: deferred General: Yes bladder normal to palpation External Female Exam: normal external appearance and normal appearance of the urethra Speculum Exam - Vagina: normal appearance of the vagina, normal palpation, normal vaginal discharge and vagina atrophic Speculum Exam - Cervix: normal appearance of the cervix and normal palpation Bimanual exam- vagina & uterus: normal bimanual exam, normal palpation, uterine size normal, bladder normal to palpation, normal palpation and non-tender Bimanual Exam- Adnexa, other: no masses Skin General skin exam: no rashes or lesions noted Rashes: no rashes Neuro General: patient oriented x3 Cognition (Neuro): normal cognition Extrem General: Yes normal to inspection Psych Attitude: cooperative Thought process: Normal thought process present Assessment & Plan Assessment & Plan (1) Encounter for well woman exam with routine gynecological exam: Code(s): Z01.419 - Encounter for gynecological examination (general) (routine) without abnormal findings Plan Discussed: Current recommendations for pap smears per ASCCP guidelines. Breast awareness, periodic self breast exams and yearly mammogram. Maintain a healthy lifestyle, well balanced diet including Calcium 1,200 mg and Vitamin D 600 IU daily, and routine exercise. Contact the office with any normal uterine bleeding, bleeding less than 3 weeks apart or heavy prolonged bleeding episodes. Patient verbalizes understanding and agrees to the plan of care. She was given opportunity to ask questions and all questions were answered to the best of my ability. RTO in 1 year for annual copy room technician exam. This note is constructed using voice recognition software. While every effort has been made to ensure accuracy, specialist field engineer errors may have been included. Coding Level of Care Code Est Pt Prev Care 40-64y(99352) Diagnoses Encounter for well woman exam with routine gynecological exam Z01.419
[2023-10-17 08:06] VITALS: BP 118/72; BMI 33.9
== END 2023-10-17 08:36 | disposition home or self-care (01) ==
LOC: HO.HWS 08:01
PROVIDERS: PCP Internal Medicine; Visit Provider Advanced Practice Midwife
DX: Z01.419 Encounter for gynecological examination (general) (routine) without abnormal findings (principal)
CPT/HCPCS: 99396

== ENCOUNTER → 2023-10-17 08:00 | Outpatient (BNVA) | payer OTHER, SELFPAY | PROVIDERS: PCP Internal Medicine; Visit Provider Advanced Practice Midwife ==

== ENCOUNTER 2024-04-06 07:18 | Outpatient (REF) | payer OTHER, SELFPAY ==
--- NOTE | ~2024-04-06 | MM_ITS ---
EXAMINATION: MM SCREENING DIGITAL BREAST TOMOSYNTHESIS, BILATERAL CLINICAL INFORMATION: Screening. Asymptomatic. COMPARISON: Mammography: This study is compared with prior exams dating back to 2021. TECHNIQUE: Digital breast tomosynthesis is performed in both the craniocaudal and mediolateral oblique views along with computer-aided detection (CAD). Synthesized 2D images are generated from the tomosynthesis. FINDINGS: There are scattered areas of fibroglandular density (ACR BI-RADS breast composition Category b). There are no significant masses, abnormal calcifications, or other abnormalities. Patient has a skin mole in the inferior aspect of the right breast which was present on prior mammograms. MM/MM tomosynthesis screening BI IMPRESSION: No mammographic evidence of malignancy. ASSESSMENT: BI-RADS BI-RADS 1 - Negative RECOMMENDATION: Routine annual mammography screening. 1 year F/U This examination should not preclude the clinical evaluation of a suspicious palpable abnormality. This patient's information was entered into a reminder system with a target due date for their next mammogram. Electronically signed by: Marisol Zavala MD 05/04/2024 10:54 AM EDT
== END 2024-04-06 07:19 | disposition home or self-care (01) ==
LOC: HO.MAMMO 07:18
PROVIDERS: PCP Internal Medicine; Visit Provider Internal Medicine
DX: Z12.31 Encounter for screening mammogram for malignant neoplasm of breast (principal)
CPT/HCPCS: 77063; 77067

== ENCOUNTER → 2024-04-06 07:30 | Outpatient (BNV) | payer OTHER, SELFPAY | PROVIDERS: PCP Internal Medicine; Visit Provider Radiology Diagnostic Radiology | DX: Z12.31 Encounter for screening mammogram for malignant neoplasm of breast (principal) | CPT/HCPCS: 77063; 77067 ==

== ENCOUNTER 2024-09-06 11:06 | Emergency (ER) | payer OTHER, SELFPAY ==
[2024-09-06] VITALS (9 sets, daily range): BP systolic 156–188; BP diastolic 57–81; PULSE 66–86; RESP 16–20; TEMP 36.6–36.8; O2SAT 98; BMI 36.5
--- NOTE | ~2024-09-06 | CT_ITS ---
EXAMINATION: CT ABDOMEN PELVIS WITH IV CONTRAST HISTORY: Microcytic anemia, evaluate for GI /GASTROENTEROLOGY PHYSICIAN malignancy COMPARISON: There are no prior studies for comparison. TECHNIQUE: CT scan of the abdomen and pelvis was performed following administration of 85 mL Omnipaque 350 using standard departmental protocol. Coronal and sagittal reformatted images were generated and reviewed. Oral contrast material was not administered at the request of the referring physician. This CT exam was performed with one or more of the following dose reduction techniques: automated exposure control, adjustment of the mA and/or kV according to patient size, use of iterative reconstruction technique. DLP: 819 mGy-cm FINDINGS: LOWER CHEST: The visualized lung bases are clear. There is no pleural effusion. CARDIOVASCULATURE: The heart is normal in size. There is a small pericardial effusion. LIVER: There is mild atrophy of the right lobe of the liver with hypertrophy of the left and caudate lobes. While the liver contour is not nodular, this configuration can be seen in the setting of cirrhosis. No liver mass is identified. The hepatic and portal veins are patent. GALLBLADDER / BILE DUCTS: There is cholelithiasis. There is no intra or extrahepatic biliary ductal dilatation. SPLEEN: The spleen is enlarged. No focal splenic lesion is identified. PANCREAS: The pancreas is unremarkable in appearance. ADRENAL GLANDS: Within normal limits. KIDNEYS/RETROPERITONEUM: No renal calculi are identified. There is no hydronephrosis. No renal masses are identified. LYMPH NODES: No abdominal or pelvic lymphadenopathy. VASCULATURE: The abdominal aorta is normal in caliber. MESENTERY/PERITONEUM: No free fluid. No masses. There is no free intraperitoneal gas. STOMACH: There is a moderate amount of debris in the stomach. SMALL BOWEL: The small bowel is normal in caliber. COLON: There is a large amount of stool in the colon. APPENDIX: The appendix is not seen, however no inflammatory changes are seen adjacent to the cecum. URINARY BLADDER/PELVIC ORGANS: The urinary bladder is unremarkable. The uterus is unremarkable. The ovaries are not enlarged. BONES / SOFT TISSUES: No suspicious bony or soft tissue abnormalities. CT/CT abdomen pelvis w IV con IMPRESSION: 1. The uterus and ovaries are unremarkable in appearance. 2. Atrophy of the right lobe of the liver with hypertrophy of the left and caudate lobes. There is associated splenomegaly. Findings are suspicious for cirrhosis. Correlation with liver function tests is recommended. 3. Cholelithiasis. 4. Small pericardial effusion. Electronically signed by: Sea Mcgarry MD 09/06/2024 02:31 PM NOLAN
--- NOTE | 2024-09-06 11:15 | ED.RECABL ---
HPI - Recheck/Abnormal Lab/Rx General Chief Complaint: General Medical Stated Complaint: Blood transfusion Time Seen by Provider: 09/06/24 13:00 Source: patient Mode of arrival: ambulatory Limitations: no limitations History of Present Illness ED Provider: Dr. Shaheen Gil HPI narrative: 53-year-old with a history of diabetes mellitus, hypertension, hyperlipidemia who presents emergency department for evaluation of iron deficient microcytic anemia. The patient states that she has a routine physical exam on 09/16/2024 and add brief physical blood work done. She was contacted by your PCP informed that she was severely anemic and repeat labs confirmed the anemia therefore she was referred to the emergency department for evaluation. Patient states she was asymptomatic. She states she has been in her usual state of health and has been able to exercise without any difficulty. She denied chest pain, shortness of breath, dyspnea on exertion, fatigue. She was not noted any dark stools or bloody stools. The patient states she was going through menopause and has irregular menses. She states that her menstrual periods are occasionally heavy where she soaks through 5 pads per day for 3-4 days. Patient was not on any unusual a diet. The patient had a screening colonoscopy done 05/07/2023 which was normal. Related Data Previous Rx's ?Medication ?Instructions ?Recorded blood-glucose meter (OneTouch #1 ea 01/09/23 Ultra2 Meter) lancets 33 gauge #200 ea 08/01/23 nitrofurantoin 100 mg PO Q12H 7 days #14 caps 09/16/23 monohydrate/macrocrystals 100 mg capsule rosuvastatin 5 mg tablet 5 mg PO 2XW 90 days #26 tabs 09/16/23 metformin 1,000 mg tablet 1,000 mg PO BIDWMEAL #180 tabs 09/25/23 OneTouch Ultra Test (blood sugar #200 ea 10/26/23 diagnostic) hydrochlorothiazide 12.5 mg tablet 12.5 mg PO DAILY #90 tabs 06/17/24 lisinopril 5 mg tablet 5 mg PO DAILY #90 tabs 07/20/24 Allergies Allergy/AdvReac Type Severity Reaction Status Date / Time amoxicillin AdvReac Mild Rash Verified 09/06/24 11:16 Review of Systems Review of Systems: Yes all other systems are reviewed and are negative PMFSH Past Medical History PMFSH Narrative: Social history: Patient denies tobacco, alcohol and drug use. Medical History Obesity (BMI 30-39.9) Diabetes mellitus without complication, without long-term current use of insulin Essential hypertension Dyslipidemia Plantar ulcer of right foot Gestational diabetes Surgical History Hx of tubal ligation History of Hx of appendectomy Family History Family History Maternal Grandmother Pancreatic cancer Maternal Grandfather Esophageal cancer Social History Social History Household Members: Spouse Housing: House Patient Tobacco Use Status: Never used Tobacco Smoked in Last 30 Days: No e-Cigarette/Vaping Use: Never Used Use of substances other than those prescribed or required for medical reasons: No Advance Directives: No Advance Directives Information Provided: Yes Do you have a plan to hurt others: No Plan service: No Current occupational status: employed Sexual orientation: Straight/Heterosexual Gender identity: Female Cognitive needs: No Hearing needs: No Vision needs: Yes Physical Exam Vital Signs: Vital Signs: Last Vital Signs Temp 97.9 F 09/06/24 20:58 Pulse 66 09/06/24 20:58 Resp 16 09/06/24 20:58 BP 165/60 H 09/06/24 20:58 Pulse Ox 98 09/06/24 20:58 O2 Del Method Room Air 09/06/24 20:58 BMI result Body Mass Index 36.5 Vital signs revealed an elevated blood pressure of 169/72 otherwise unremarkable Exam: General: Awake, alert in no distress Head: Normocephalic, atraumatic EENT: PERRL, Lids normal, sclera normal, conjunctiva normal, nose normal , ears normal, throat without erythema or exudates Neck: Supple, no adenopathy Lung: breath sounds symmetric, no wheezing, rales or rhonchi Chest: symmetric movement, nontender Heart: regular rate and rhythm, normal S1, S2 no murmurs or rubs Abdomen: soft, non-tender, nondistended, normal bowel sounds Rectal: No external hemorrhoids noted, sphincter tone was normal, no masses on digital exam appreciated Back: no vertebral tenderness, no CVAT Extremities: no deformities, moves all extremities symmetrically Neuro: Awake, alert, oriented, normal speech, cranial nerves intact, moves all extremities symmetrically Psych: Pleasant, cooperative Course Course Course Narrative: This is an RME: Additional HPI, ROS, PE not included below will be deferred to primary provider. RME assessment and note performed by: Janneth Mariano PA-C This is a 10-ht[age]-female, with a hx of diabetes, hypertension, and HLD, who presents to the ER with complaints of abnormal labs. Pt had routine blood work for physical. Reports that she just had her physical exam and her blood work showed low H&H at 4.5/16.9 then repeated on 09/06 and was 4.9/18.9. She is feeling very well, no current complaints. She does appear to be pale. Shortness of breath dizziness, headache, chest pain or shortness for breath. No bloody or black stool. No hemoptysis. She does report that her menses just ended several days ago, states that at times can be very heavy, states that this past 1 was not heavy. Reports that she lost 200lbs over 2 years with dietary changes, exercise. Plan: Labs, type and screen, further ER evaluation needed. Medications Administered Discontinued Medications Generic Name Dose Route Start Last Admin Trade Name Freq PRN Reason Stop Dose Admin Iohexol 100 ml 09/06/24 14:00 09/06/24 14:01 Iohexol 350 Mg/Ml 100 Ml Infus..Btl IV 09/06/24 14:01 85 ml ONCE ONE Administration Medical Decision Making Medical Decision Making [facility] Narrative: 53-year-old with a history of diabetes mellitus, hypertension, hyperlipidemia who presents emergency department for evaluation of iron deficient microcytic anemia noted on routine labs for a physical later this month. Patient was asymptomatic. Patient is premenopausal and does have irregular menstrual periods with heavy bleeding but she states she was always had heavy bleeding. She was not noticed any dark black stools, bloody stools, abdominal pain, weight loss, weight gain or night sweats. Patient had no abdominal tenderness. Rectal exam revealed brown stool which was Hemoccult negative. Differential diagnosis: ?Includes but is not limited to anemia secondary menstrual blood loss, GI blood loss, gynecology teacher malignancy Course: 21:22 My interpretation patient's laboratory evaluation is as follows: Microcytic anemia with an H&H of 4.6 and 17.9 with a low MCV of 65.1. Coags were normal. Lab Data 09/06/24 11:30 09/06/24 11:29 Labs: Lab Results 09/06/24 09/06/24 09/06/24 Range/Units 11:28 11:29 11:30 WBC 5.0 (4.8-10.8) X10*3/uL RBC 2.75 L (4.20-5.50) X10*6/uL Hgb 4.6 L* (12.0-16.0) g/dl Hct 17.9 L* (37.0-47.0) % MCV 65.1 L (80.0-98.0) fL MCH 16.7 L (27.0-33.0) pg MCHC 25.7 L (31.0-35.0) g/dl RDW 20.5 H (11.0-16.0) % Plt Count 151 L (160-400) X10*3/uL MPV 10.2 (9.4-12.3) fL Immature Gran % (Auto) 0.2 (0.0-0.4) % Neut % (Auto) 62.8 (45-73) % Lymph % (Auto) 26.8 (20-40) % [place] % (Auto) 7.2 (2-11) % Eos % (Auto) 1.8 (0-4) % Baso % (Auto) 1.2 (0-2) % Lymph # (Auto) 1.4 (1.2-4.9) X10*3/uL [place] # (Auto) 0.4 (0.1-1.2) X10*3/uL Eos # (Auto) 0.1 (0.0-0.4) X10*3/uL Baso # (Auto) 0.1 (0.0-0.2) X10*3/uL Abs Immat Gran (auto) 0.01 (0.00-0.03) X10*3/uL Absolute Neuts (auto) 3.2 (2.0-8.3) x10*3/uL Absolute Nucleated RBC 0.000 (0.0-0.012) X10*3/uL Nucleated RBC % (auto) 0.0 (0.0-0.2) /100WBC PT 11.8 (10.9-12.4) SEC INR 1.0 (0.9-1.1) APTT 30.5 (26.0-36.8) SEC Sodium 143 (135-145) mmol/L Potassium 4.5 (3.3-5.1) mmol/L Chloride 106 (96-108) mmol/L Carbon Dioxide 26 (22-29) mmol/L Anion Gap 16 (12-20) BUN 22 H (9-16) mg/dL Creatinine 0.75 (0.5-1.4) mg/dL Estim Creat Clear Calc 107.2 Estimated GFR > 60 Random Glucose 102 (60-115) mg/dL Calcium 8.9 (8.4-10.2) mg/dL Magnesium 1.5 L (1.6-2.6) mg/dL Iron 20 L (30-160) mcg/dL TIBC 395 (228-428) mcg/dL % Saturation 5 L (15-50) % Unsat Iron Binding 375 ug/dL Ferritin 3 L (10-250) ng/mL Total Bilirubin 0.4 (0.0-1.0) mg/dL Direct Bilirubin 0.2 (0.0-0.5) mg/dL AST 21 (5-31) U/L ALT 12 (0-31) U/L Alkaline Phosphatase 52 (39-117) U/L Troponin I High Sens 3.1 (<3.5-17.0) ng/L Total Protein 7.1 (6.5-8.0) g/dL Albumin 3.8 (3.5-5.0) g/dL Beta HCG, Quant < 2 mIU/mL Stool Occult Blood (NEGATIVE) Blood Type O Positive Antibody Screen NEGATIVE Crossmatch See Detail 09/06/24 Range/Units 13:28 WBC (4.8-10.8) X10*3/uL RBC (4.20-5.50) X10*6/uL Hgb (12.0-16.0) g/dl Hct (37.0-47.0) % MCV (80.0-98.0) fL MCH (27.0-33.0) pg MCHC (31.0-35.0) g/dl RDW (11.0-16.0) % Plt Count (160-400) X10*3/uL MPV (9.4-12.3) fL Immature Gran % (Auto) (0.0-0.4) % Neut % (Auto) (45-73) % Lymph % (Auto) (20-40) % [place] % (Auto) (2-11) % Eos % (Auto) (0-4) % Baso % (Auto) (0-2) % Lymph # (Auto) (1.2-4.9) X10*3/uL [place] # (Auto) (0.1-1.2) X10*3/uL Eos # (Auto) (0.0-0.4) X10*3/uL Baso # (Auto) (0.0-0.2) X10*3/uL Abs Immat Gran (auto) (0.00-0.03) X10*3/uL Absolute Neuts (auto) (2.0-8.3) x10*3/uL Absolute Nucleated RBC (0.0-0.012) X10*3/uL Nucleated RBC % (auto) (0.0-0.2) /100WBC PT (10.9-12.4) SEC INR (0.9-1.1) APTT (26.0-36.8) SEC Sodium (135-145) mmol/L Potassium (3.3-5.1) mmol/L Chloride (96-108) mmol/L Carbon Dioxide (22-29) mmol/L Anion Gap (12-20) BUN (9-16) mg/dL Creatinine (0.5-1.4) mg/dL Estim Creat Clear Calc Estimated GFR Random Glucose (60-115) mg/dL Calcium (8.4-10.2) mg/dL Magnesium (1.6-2.6) mg/dL Iron (30-160) mcg/dL TIBC (228-428) mcg/dL % Saturation (15-50) % Unsat Iron Binding ug/dL Ferritin (10-250) ng/mL Total Bilirubin (0.0-1.0) mg/dL Direct Bilirubin (0.0-0.5) mg/dL AST (5-31) U/L ALT (0-31) U/L Alkaline Phosphatase (39-117) U/L Troponin I High Sens (<3.5-17.0) ng/L Total Protein (6.5-8.0) g/dL Albumin (3.5-5.0) g/dL Beta HCG, Quant mIU/mL Stool Occult Blood NEGATIVE (NEGATIVE) Blood Type Antibody Screen Crossmatch Radiology Impression Discussion of test interpretation with radiology: I have reviewed the radiologist's reading. Radiologist Impression: CT abdomen pelvis w IV con IMPRESSION: 1. The uterus and ovaries are unremarkable in appearance. 2. Atrophy of the right lobe of the liver with hypertrophy of the left and caudate lobes. There is associated splenomegaly. Findings are suspicious for cirrhosis. Correlation with liver function tests is recommended. 3. Cholelithiasis. 4. Small pericardial effusion. Electronically signed by: Sea Mcgarry MD 09/06/2024 02:31 PM EST Discharge Plan Discharge Clinical Impression: Iron (Fe) deficiency anemia Patient Disposition: Home, Self-Care Instructions: Iron Deficiency Anemia (ED) Additional Instructions: At this time I do not have a clear cause for your iron deficiency anemia. You were given 2 units of blood and this should bring your hematocrit and hemoglobin up into a more normal range Take ferrous sulfate 325 mg pills, 1 pill twice a day for [address] scan of your abdomen pelvis did not reveal a clear cause your anemia. The radiologist did no a large spleen and possible cirrhosis of 1 part of your liver. Please show the CT scan reading below to your primary care doctor so that they can determine what type of follow-up you need. Your primary care doctor may want you to follow-up with your milling machine tender, Dr. Gonsalez or 1 of our hematologists. Follow-up with your doctor in 1 week for repeat hematocrit and hemoglobin Please return to the emergency department if your symptoms get worse or if you develop any symptoms that are concerning to you. CT abdomen pelvis w IV con IMPRESSION: 1. The uterus and ovaries are unremarkable in appearance. 2. Atrophy of the right lobe of the liver with hypertrophy of the left and caudate lobes. There is associated splenomegaly. Findings are suspicious for cirrhosis. Correlation with liver function tests is recommended. 3. Cholelithiasis. 4. Small pericardial effusion. Electronically signed by: Sea Mcgarry MD 09/06/2024 02:31 PM Prescriptions: No Action (DME) blood-glucose meter [OneTouch Ultra2 Meter] Misc See Rx Instructions .Route Qty: 1 0RF Rx Instructions: As directed (DME) lancets 33 gauge misc See Rx Instructions .Route Qty: 200 1RF Rx Instructions: test blood sugar twice a day metformin 1,000 mg tablet 1,000 mg PO BIDWMEAL Qty: 180 3RF (DME) OneTouch Ultra Test Strip See Rx Instructions .Route Qty: 200 1RF Rx Instructions: test blood sugar twice a day hydrochlorothiazide 12.5 mg tablet 12.5 mg PO DAILY Qty: 90 0RF lisinopril 5 mg tablet 5 mg PO DAILY Qty: 90 1RF nitrofurantoin monohyd/m-cryst 100 mg capsule 100 mg PO Q12H 7 Days Qty: 14 0RF Rx Instructions: must administer with a meal/food rosuvastatin 5 mg tablet 5 mg PO 2XW 90 Days Qty: 26 3RF Print Language: Chinese
[2024-09-06 11:43] LABS: MANUAL DIFF FLAG NO
[2024-09-06 11:46] LABS: Basophils Absolute Auto 0.1 X10*3/uL (0.0-0.2); Basophils Percent Auto 1.2 % (0-2); Eosinophils Absolute Auto 0.1 X10*3/uL (0.0-0.4); Eosinophils Percent Auto 1.8 % (0-4); Imm Gran Abs Auto 0.01 X10*3/uL (0.00-0.03); Imm Gran Pct Auto 0.2 % (0.0-0.4); Lymphocytes Absolute Auto 1.4 X10*3/uL (1.2-4.9); Lymphocytes Percent Auto 26.8 % (20-40); Mean Corpuscular HGB Conc 25.7 g/dl (31.0-35.0); Mean Corpuscular Hemoglobin 16.7 pg (27.0-33.0); Mean Corpuscular Volume 65.1 fL (80.0-98.0); Mean Platelet Volume 10.2 fL (9.4-12.3); Monocytes Absolute Auto 0.4 X10*3/uL (0.1-1.2); Monocytes Percent Auto 7.2 % (2-11); Neutrophils Absolute Auto 3.2 x10*3/uL (2.0-8.3); Neutrophils Percent Auto 62.8 % (45-73); Platelet Count 151 X10*3/uL (160-400); Red Blood Count 2.75 X10*6/uL (4.20-5.50); Red Cell Distribution Width 20.5 % (11.0-16.0)
[2024-09-06 11:48] LABS: Hemoglobin 4.6 g/dl (12.0-16.0)
[2024-09-06 11:49] LABS: Hematocrit 17.9 % (37.0-47.0)
[2024-09-06 11:54] LABS: Prothrombin Time 11.8 SEC (10.9-12.4)
[2024-09-06 11:56] LABS: Partial Thromboplastin Time 30.5 SEC (26.0-36.8)
[2024-09-06 12:10] LABS: HCG Quantitative < 2 mIU/mL; Troponin-I High Sensitivity 3.1 ng/L (<3.5-17.0)
[2024-09-06 12:13] LABS: Alanine Aminotransferase 12 U/L (0-31); Albumin Level 3.8 g/dL (3.5-5.0); Alkaline Phosphatase 52 U/L (39-117); Anion Gap 16 (12-20); Aspartate Amino Transferase 21 U/L (5-31); Bilirubin Direct 0.2 mg/dL (0.0-0.5); Bilirubin Total 0.4 mg/dL (0.0-1.0); Blood Urea Nitrogen 22 mg/dL (9-16); Calcium 8.9 mg/dL (8.4-10.2); Carbon Dioxide 26 mmol/L (22-29); Chloride 106 mmol/L (96-108); Creatinine Clr Calc Pharmacy 107.2; Estimated Glomerular Filt Rate > 60; Glucose Random 102 mg/dL (60-115); Iron 20 mcg/dL (30-160); Magnesium 1.5 mg/dL (1.6-2.6); Percent Iron Saturation 5 % (15-50); Potassium 4.5 mmol/L (3.3-5.1); Sodium 143 mmol/L (135-145); Total Iron Binding Capacity 395 mcg/dL (228-428); Total Protein 7.1 g/dL (6.5-8.0); Unsaturated Iron Binding 375 ug/dL
[2024-09-06 12:27] LABS: Ferritin 3 ng/mL (10-250)
--- NOTE | 2024-09-06 13:35 | PC.NURSE ---
20g iv inserted left AC. pt aox4. pt has no complaints. she denies SOB, exertional dyspnia, diarrhea, constipation, blood in steels, chest pain, weakness.
[2024-09-06] MEDS: iohexoL 350 MG/ML 100 ML INFUS..BTL IV (14:01)
[2024-09-06 14:05] LABS: OBS Int Ctl Valid YES; OBS1 NEGATIVE (NEGATIVE)
--- NOTE | 2024-09-06 20:31 | PC.NURSE ---
Took over care from ANNIE Prescott, pt completed second unit of blood and tolerated well. Pt awaiting dispostion.
== END 2024-09-06 21:29 | disposition home or self-care (01) ==
PROVIDERS: Physician Assistant Medical; Emergency Provider Emergency Medicine Emergency Medical Services; PCP Internal Medicine
DX: D50.9 Iron deficiency anemia, unspecified (principal); E11.9 Type 2 diabetes mellitus without complications; I10 Essential (primary) hypertension; Z79.899 Other long term (current) drug therapy
CPT/HCPCS: 36415; 36430; 74177; 80048; 80076; 82272; 82728; 83540; 83735; 84484; 84702; 85025; 85610; 85730; 86850; 86900; 86901; 86923; 99284; 99285; P9016; Q9967

== ENCOUNTER → 2024-09-06 13:42 | Outpatient (BNV) | payer OTHER, SELFPAY | PROVIDERS: Emergency Provider Emergency Medicine Emergency Medical Services; PCP Internal Medicine; Visit Provider Radiology Diagnostic Radiology | DX: K80.80 Other cholelithiasis without obstruction (principal); K76.89 Other specified diseases of liver; I31.39 Other pericardial effusion (noninflammatory) | CPT/HCPCS: 74177 ==

== ENCOUNTER 2024-09-13 06:08 | Outpatient (REF) | payer OTHER, SELFPAY ==
--- OUTSIDE RECORDS SUMMARY | 2024-09-13 06:10 | XMS_ITS ---
Author Organization [facility] Address [address] [place] [id number] Care Team Providers Care Final Inspector And Tester Name Role Phone Sukhjinder PHELAN, Briana Primary Care Provider Ton Arauz Jr REASON FOR VISIT screening Encounters Encounter Location Date Provider [place] [facility] [place] [address], [place] [phone] 05/09/2023 Ton Gonsalez Jr PLAN OF TREATMENT No Information
--- OUTSIDE RECORDS SUMMARY | 2024-09-13 06:10 | XMS_ITS | Patient Health Record ---
Author Organization [facility] Address [address] [place] [address] Care Team Providers Care Safe And Vault Mechanic Name Role Phone Sukhjinder PHELAN, Briana Carrero Primary Care Provider Un available Ahmetsally Alexus Unavailable [phone] Allergies Allergen (clinical drug ingredient) Drug/Non Drug Allergy documented on EMR Reaction Allergy Type Onset Date Status amoxicillin Amoxicillin rash Drug Allergy Act sheldon Reason For Referral No Information Medications Medication SIG (Take, Route, Frequency, Duration) Notes Start Date End Date Status Rosuvastatin Calcium 5 MG 1 tablet Orally Once a day for 30 day(s) 2x per week Active metFORMIN HCl 1000 MG 1 tablet with a me al Orally Once a day for 30 day(s) Active Extra Depth Orthopedic Shoes (1 Pair) with Customized Heat Molded Multidensity Innersoles (3 Pair) as directed Dx: NIDDM (E11.9), Hammertoe Foot Deformity (M20.41,M20.42), Preulcerative Skin Lesion(s) (L85.1) 04/24/2022 Active Lisinopril 5 MG 1 tablet Orally Once a day for 30 day(s) Active Social History Tobacco Use: Social History Observation Description Date Details (start date - stop date) Never Smoker NA - NA Tobacco Use/Smoking Question Answer Notes Are you a: nonsmoker Additional Findings: Tobacco Non-User Current no n-smoker Alcohol Screen Question Answer Notes Did you have a drink contain ing alcohol in the past year? Yes How often did you have a dri nk containing alcohol in the past year? Monthly or less (1 point) Points 1 Interpretation Negative Problems Problem Type SNOMED Code ICD Code Onset Dates Problem Status W/U Status Risk Notes Problem 931876025 Hammer toe of left foot (M20.42) Active confirmed Problem [id number] Type 2 diabetes mellitus without complication, without long-term current use of insulin (E11.9) Active confirmed Plan Of Treatment No Information Insurance Providers Payer Name Payer Address Payer Phone Subscriber Number Group Number Insured Name Patient Relationship to Insured Coverage Start Date Coverage End Date [facility] [address] [address] [place] [address] [phone] [id number] Lorna Dickson Self - patient is the insured Medical (General) History Medical History History ICD Code Diabetes mellitus Chicken pox Surgical History Surgery Date(Month/Year) appendectomy 1984 section 06/24/1997, 01/29/2002 tubal ligation 01/29/2002
--- OUTSIDE RECORDS SUMMARY | 2024-09-13 06:11 | XMS_ITS | Patient Health Record ---
Author Organization [facility] Address [address] [place] [address] Care Team Providers Care Medical Billing Instructor Name Role Phone Sukhjinder PHELAN, Briana Primary Care Provider Ton Arauz Jr Unavailable ALLERGIES Allergen (clinical drug ingredient) Drug/Non Drug Allergy documented on EMR Reaction Allergy Type Onset Date Status amoxicillin Amoxicillin Unknown Drug Allergy Act sheldon REASON FOR REFERRAL No Information MEDICATIONS Medication SIG (Take, Route, Frequency, Duration) Notes Start Date End Date Status MiraLax (colon prep) 17 GM/SCOOP mixed with Gatorade or Crystal Light Orally begin at 5:00 p.m. the day before the procedure for 1 day 03/12/2023 Active OneTouch Ultra 2 w/Device for 30 Active Lisinopril 5 MG TAKE 1 TABLET BY WINNIE TH EVERY DAY Oral for 90 Active Rosuvastatin Calcium 5 MG TAKE ONE TABLE T ORALLY 2 TIMES A WEEK FOR 90 DAYS Oral for 90 Active metFORMIN HCl 1000 MG Oral for 90 Active IMMUNIZATIONS Vaccine Route Administration Date Status Comme nts Influenza Unknown 09/04/2022 Administered SOCIAL HISTORY Tobacco Use: Social History Observation Description Date Details (start date - stop date) Never Smoker NA - NA Sex Assigned At : Social History Observation Description Sex Assigned At Unknown Tobacco Use/Smoking Question Answer Notes Patient is a nonsmoker Alcohol Screen Question Answer Notes Did you have a drink containing alcohol in the p ast year? No Points 0 Interpretation Negative PROBLEMS Problem Type ICD Code Onset Dates Problem Status W/U Status Risk SNOMED Code Notes Problem Colon cancer screening (Z12.11) Active confirmed 945263358 Problem Encounter for other preprocedural examination (Z01.818) Active confirmed 451676412 Problem director long term care (current) use of oral hypoglycemic drugs (Z79.84) Active confirmed [id number] PLAN OF TREATMENT Future Test Test Name Order Date COLONOSCOPY 03/12/2023 Insurance Providers Payer Name Payer Address Payer Phone Subscriber Number Group Number Insured Name Patient Relationship to Insured Coverage Start Date Coverage End Date [facility] [address] [place] [address] [id number] TORSTEN ALVAREZ Self - patient is the insured MEDICAL (GENERAL) HISTORY Medical History History ICD Code Diabetes mellitus type 2 Hyperlipidemia Hypertension Elevated body mass index Surgical History Surgery Date(Month/Year) Appendectomy 1984 section x2 1996,2001 Tubal ligation 2001
--- OUTSIDE RECORDS SUMMARY | 2024-09-13 06:11 | XMS_ITS ---
Author Organization [facility] Address [address] [place] [address] Care Team Providers Care Supervisor Glycerin Name Role Phone Sukhjinder PHELAN, Briana Primary Care Provider Ton Arauz Jr REASON FOR VISIT screening Encounters Encounter Location Date Provider Diagnosis [facility] [place] [address], [place] [phone] 05/07/2023 Ton Gonsalez Jr Colon cancer screening Z12.11 ASSESSMENTS Encounter Date Diagnosis Assessment Notes Treatment Notes Treatment Clinical Notes 05/07/2023 Colon cancer screening (ICD-10 - Z12.11) PLAN OF TREATMENT No Information
[2024-09-13 10:24] LABS: Estimated Average Glucose 103 mg/dL; Hemoglobin A1C 57.7212 umol/L; Hemoglobin A1c % 5.2 % (<6.0); Total Hemoglobin (HGBA1C) 1737.0376 umol/L
[2024-09-13 11:10] LABS: Alanine Aminotransferase 13 U/L (0-31); Anion Gap 11 (12-20); Aspartate Amino Transferase 28 U/L (5-31); Blood Urea Nitrogen 28 mg/dL (9-16); Calcium 8.9 mg/dL (8.4-10.2); Carbon Dioxide 25 mmol/L (22-29); Chloride 106 mmol/L (96-108); Cholesterol 94 mg/dL (<200); Estimated Glomerular Filt Rate > 60; Glucose Fasting 117 mg/dL (60-99); HDL Cholesterol 41 mg/dL (>40); LDL Cholesterol Calculated 40 mg/dL (<100); Potassium 4.7 mmol/L (3.3-5.1); Sodium 137 mmol/L (135-145); Triglycerides 67 mg/dL (<150)
== END 2024-09-13 06:09 | disposition home or self-care (01) ==
LOC: HO.HMGCLDS 06:08
PROVIDERS: PCP Internal Medicine; Visit Provider Internal Medicine
DX: E66.9 Obesity, unspecified (principal); E11.9 Type 2 diabetes mellitus without complications; I10 Essential (primary) hypertension; E78.5 Hyperlipidemia, unspecified
CPT/HCPCS: 36415; 80048; 80061; 83036; 84450; 84460

== ENCOUNTER 2024-09-16 08:44 | Outpatient (AMB) | payer OTHER, SELFPAY ==
--- NOTE | 2024-09-16 09:03 | MHC.PC.OV ---
Vital Signs 09/16/24 09:08 Height 5 ft 7.5 in Weight 227 lb BMI 35.0 BP 150/84 H Blood Pressure Location Rt brachial Position Sitting Respiration 14 Pulse 74 Pulse Source Pulse Oximeter Temp 97.9 F Temp Source Oral Pulse Oximetry (%) 100 Oxygen Delivery Method Room Air Intake Visit Reasons: Annual PE Intake Note: Pt is here today for her Allergies amoxicillin Adverse Reaction (Mild, Verified 09/16/24 09:35) Rash Medication List - Last Reconciled 09/16/24 by Briana Slaughter MD blood-glucose meter ([place] Ultra2 Meter) As directed hydrochlorothiazide 12.5 mg PO DAILY lancets test blood sugar twice a day lisinopril 5 mg PO DAILY metformin 1,000 mg PO BIDWMEAL OneTouch Ultra Test (blood sugar diagnostic) test blood sugar twice a day NS rosuvastatin 5 mg PO 2XW 90 days Tobacco use date assessed: 09/16/24 Dental Screening Dental Screen Date: 09/16/24 Did you have a dental visit in the last 12 months?: Yes Did you have a dental problem in the last 6 months where you did not have access to dental care?: No Was dental information given to patient?: Patient has dentist [facility] Medical History (Updated 09/16/24 @ 09:49 by Briana Slaughter MD) Anemia, iron deficiency Obesity (BMI 30-39.9) Diabetes mellitus without complication, without long-term current use of insulin Essential hypertension Dyslipidemia Plantar ulcer of right foot Gestational diabetes Surgical History Hx of tubal ligation History of Hx of appendectomy Family History Maternal Grandmother Pancreatic cancer Maternal Grandfather Esophageal cancer Social History Household Members: Spouse Housing: House Patient Tobacco Use Status: Never used Tobacco e-Cigarette/Vaping Use: Never Used service: No Current occupational status: employed Sexual orientation: Straight/Heterosexual Gender identity: Female Cognitive needs: No Hearing needs: No Vision needs: Yes Female Reproductive History Menstrual Age of Menarche: 11 Questionnaire PHQ-9 Over the last 2 weeks, how often have you been bothered by any of the following problems? 1. Little interest or pleasure in doing things: not at all 2. Feeling down, depressed, or hopeless: not at all 3. Trouble falling or staying asleep, or sleeping too much: not at all 4. Feeling tired or having little energy: not at all 5. Poor appetite or overeating: not at all 6. Feeling bad about yourself - or that you are a failure or have let yourself or your family down: not at all 7. Trouble concentrating on things, such as reading the newspaper or watching television: not at all 8. Moving or speaking so slowly that other people could have noticed. Or the opposite - being so fidgety or restless that you have been moving around a lot more than usual: not at all 9. Thoughts that you would be better off or of hurting yourself in some way: not at all Total score: 0 Source: Developed by Drs. Sea Moran, Marilyn Watkins, Mookie Brady and colleagues, with an educational marquise from [employer]. Thrive Questionnaire Date Thrive assessed: 09/13/24 I am a: Patient What is your living situation today?: I have a steady place to live Within the past 12 months, did the food you bought not last and you didn't have the money to get more?: Never true Within the past 12 months, did you worry whether your food would run out before you got money to buy more?: Never true Do you have trouble paying for medicines?: No Do you have trouble getting transportation to medical appointments?: No Do you have trouble paying your heating and electricity bill?: No Do you have trouble taking care of your child, family member or friend?: No Do you have trouble with day-to-day activities such as bathing, preparing meals, shopping, managing finances, etc.?: No Are you currently unemployed and looking for a job?: No Are you interested in more education?: No Please select the resources that you would like help with: None Currently or been in a relationship where the following occur: No concerns reported THRIVE Score: 0 AUDIT C Alcohol Use Questionnaire (AUDIT-C) 1. How often do you have a drink containing alcohol?: Monthly or less 2. How many drinks containing alcohol do you have on a typical day when you are drinking?: 1 or 2 3. How often do you have six or more drinks on one occasion?: Never Total Score: 1 ROMEO-7 AMB Questionnaire ROMEO-7 Date ROMEO - 7 assessed: 09/16/24 Feeling nervous, anxious, or on edge: 0 = Not at all Not being able to stop or control worryin = Not at all Worrying too much about different things: 0 = Not at all Trouble relaxin = Not at all Being so restless that it is hard to sit still: 0 = Not at all Becoming easily annoyed or irritable: 0 = Not at all Feeling afraid as if something awful might happen: 0 = Not at all Total ROMEO-7 score (0-4 normal; 5-9 mild; 10-14 moderate; 15-21 severe): 0 Source: Developed by Drs. Sea Moran, Marilyn Watkins, Mookie Brady and colleagues, with an educational marquise from [employer]. Physical exam (Primary Care) Vital Signs: Last Vital Signs Temp 97.9 F 09/16/24 09:08 Pulse 74 09/16/24 09:08 Resp 14 09/16/24 09:08 BP 150/84 H 09/16/24 09:08 Pulse Ox 100 09/16/24 09:08 Oxygen Delivery Method Room Air 09/16/24 09:08 BMI result Body Mass Index 35.0 Tobacco/Smoking Status: Tobacco use Status Tobacco use date assessed 09/16/24 09/16/24 09:04 Patient Tobacco Use Status Never used Tobacco 09/16/24 09:04 e-Cigarette/Vaping Use Never Used 09/16/24 09:04 PHQ-9: PHQ-9 Score PHQ-9: Total score 0 09/16/24 09:11 Thrive Assessment: Date of Thrive Assessment Date Thrive assessed 09/13/24 09/16/24 09:04 Currently or been in a relationship where the following occur: No concerns reported Office Procedures Flu Questionnaire Does the patient have a severe egg allergy?: No Does the patient have severe life threatening allergies?: No Does the patient have a fever or illness today?: No Has the patient ever had Guillain-[place] Syndrome?: No Has the patient ever had any past reaction to a flu shot?: No Immunizations Fluarix Triv [id number] (PF) 45 mcg (15 mcg x 3)/0.5 mL IM syringe Performing Provider: Briana Slaughter MD Performing Location: [facility] Administered by: Curt Aguilar CMA on 09/16/24 11:02 Dose Route Admin Location Dispensed Lot Number Expiration Date NDC Coal Sample Tester 0.5 mL IM Left Deltoid 0.5 mL [id number] 02/14/25 [id number] [employer] VIS Given Date VIS Provided VIS Publication Date 09/16/24 Single Vaccine 21 Eligibility Eligibility Date Funding Source Not [facility] Eligible 09/16/24 Private Coding Level of Care Code Est Pt Prev Care 40-64y(34953) Diagnoses Dyslipidemia E78.5 Essential hypertension I10 Diabetes mellitus without complication, without long-term current use of insulin E11.9 Obesity (BMI 30-39.9) E66.9 Anemia, iron deficiency D50.9 Assessment & Plan Assessment & Plan (1) Dyslipidemia: Code(s): E78.5 - Hyperlipidemia, unspecified Category: Medical (2) Essential hypertension: Code(s): I10 - Essential (primary) hypertension Category: Medical (3) Diabetes mellitus without complication, without long-term current use of insulin: Code(s): E11.9 - Type 2 diabetes mellitus without complications Category: Medical (4) Obesity (BMI 30-39.9): Code(s): E66.9 - Obesity, unspecified Category: Medical (5) Anemia, iron deficiency: Code(s): D50.9 - Iron deficiency anemia, unspecified Category: Medical Orders: Orders Influenza [id number] Immunization Today Z23 - Encounter for immunization Medications: New metformin ER 750 mg PO QPM 90 tabs 2RF Fluarix Triv [id number] (PF) (flu vacc [id number] 6mos up(PF)) 0.5 mL IM ONCE 0.5 mL 0RF NS Z23 - Encounter for immunization Changed From OneTouch Ultra Test (blood sugar diagnostic) test blood sugar twice a day 200 ea 1RF NS E11.9 - Type 2 diabetes mellitus without complications To OneTouch Ultra Test (blood sugar diagnostic) test blood sugar once a day before a meal 100 ea 5RF NS E11.9 - Type 2 diabetes mellitus without complications From lancets test blood sugar twice a day 200 ea 1RF E11.9 - Type 2 diabetes mellitus without complications To lancets test blood sugar once a day 100 ea 3RF E11.9 - Type 2 diabetes mellitus without complications From lisinopril 5 mg PO DAILY 90 tabs 1RF E11.65 - Type 2 diabetes mellitus with hyperglycemia To lisinopril 10 mg PO DAILY 90 tabs 2RF E11.65 - Type 2 diabetes mellitus with hyperglycemia Discontinued metformin Discontinued Reason: Doctor's Order 1,000 mg PO BIDWMEAL 180 tabs 3RF
[2024-09-16 09:08] VITALS: BP 150/84; PULSE 74; RESP 14; TEMP 36.6; O2SAT 100; BMI 35.0
== END 2024-09-16 09:51 | disposition home or self-care (01) ==
PROVIDERS: PCP Internal Medicine; Visit Provider Internal Medicine
DX: Z23 Encounter for immunization (principal)

== ENCOUNTER 2024-09-16 08:44 | Outpatient (REF) | payer OTHER, SELFPAY ==
[2024-09-16 13:03] LABS: MANUAL DIFF FLAG NO
--- OUTSIDE RECORDS SUMMARY | 2024-09-16 13:08 | XMS_ITS ---
Author Organization [facility] Address [address] [place] [address] Care Team Providers Care Special Needs Librarian Name Role Phone Sukhjinder PHELAN, Briaan Primary Care Provider Ton Arauz Jr REASON FOR VISIT screening Encounters Encounter Location Date Provider Diagnosis [facility] Outpatient [address], [place] [id number] 05/07/2023 Ton Gonsalez Jr Colon cancer screening Z12.11 ASSESSMENTS Encounter Date Diagnosis Assessment Notes Treatment Notes Treatment Clinical Notes 05/07/2023 Colon cancer screening (ICD-10 - Z12.11) PLAN OF TREATMENT No Information
--- OUTSIDE RECORDS SUMMARY | 2024-09-16 13:08 | XMS_ITS | Patient Health Record ---
Author Organization [facility] Address [address] [place] [address] Care Team Providers Care In File Operator Name Role Phone Sukhjinder PHELAN, Briana Carrero Primary Care Provider Un available Ahmetsally Alexus Unavailable [phone] Allergies Allergen (clinical drug ingredient) Drug/Non Drug [...] Problem Status W/U Status Risk Notes Problem [id number] Hammer toe of left foot (M20.42) Active confirmed Problem [id number] Type 2 diabetes mellitus without complication, without long-term current use of insulin (E11.9) Active confirmed Plan Of Treatment No Information Insurance Providers Payer Name Payer Address Payer Phone Subscriber Number Group Number Insured Name Patient Relationship to Insured Coverage Start Date Coverage End Date [facility] [address] [address] [place] [address] [id number] Lorna Dickson Self - patient is the insured Medical (General) History Medical History History ICD Code Diabetes mellitus Chicken pox Surgical History Surgery Date(Month/Year) appendectomy 1984 section 06/24/1997, 01/29/2002 tubal ligation 01/29/2002
--- OUTSIDE RECORDS SUMMARY | 2024-09-16 13:08 | XMS_ITS ---
Author Organization [facility] Address [address] [place] [address] Care Team Providers Care Marketing Performance Analyst Name Role Phone Sukhjinder PHELAN, Briana Primary Care Provider Ton Arauz Jr REASON FOR VISIT screening Encounters Encounter Location Date Provider Diagnosis [facility] Outpatient [address], [place] [phone] 05/09/2023 Ton Gonsalez Jr PLAN OF TREATMENT No Information
--- OUTSIDE RECORDS SUMMARY | 2024-09-16 13:09 | XMS_ITS | Patient Health Record ---
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 hypoglycemic drugs (Z79.84) Active confirmed [id number] PLAN OF TREATMENT Future Test Test Name Order Date COLONOSCOPY 03/12/2023 Insurance Providers Payer Name Payer Address Payer Phone Subscriber Number Group Number Insured Name Patient Relationship to Insured Coverage Start Date Coverage End Date [facility] [address] [place] [address] [id number] TORSTEN ALVAREZ Self - patient is the insured MEDICAL (GENERAL) HISTORY Medical History History ICD Code Diabetes mellitus type 2 Hyperlipidemia Hypertension Elevated body mass index Surgical History Surgery Date(Month/Year) Appendectomy 1984 section x2 1996,2001 Tubal ligation 2001
[2024-09-16 13:12] LABS: Basophils Absolute Auto 0.1 X10*3/uL (0.0-0.2); Basophils Percent Auto 1.3 % (0-2); Eosinophils Absolute Auto 0.1 X10*3/uL (0.0-0.4); Eosinophils Percent Auto 1.9 % (0-4); Hematocrit 27.5 % (37.0-47.0); Hemoglobin 7.9 g/dl (12.0-16.0); Imm Gran Abs Auto 0.02 X10*3/uL (0.00-0.03); Imm Gran Pct Auto 0.3 % (0.0-0.4); Lymphocytes Absolute Auto 1.8 X10*3/uL (1.2-4.9); Lymphocytes Percent Auto 29.3 % (20-40); Mean Corpuscular HGB Conc 28.7 g/dl (31.0-35.0); Mean Corpuscular Volume 73.1 fL (80.0-98.0); Monocytes Absolute Auto 0.6 X10*3/uL (0.1-1.2); Neutrophils Absolute Auto 3.6 x10*3/uL (2.0-8.3); Neutrophils Percent Auto 58.2 % (45-73); Platelet Count 186 X10*3/uL (160-400); Red Blood Count 3.76 X10*6/uL (4.20-5.50); Red Cell Distribution Width 28.3 % (11.0-16.0); White Blood Count 6.2 X10*3/uL (4.8-10.8)
[2024-09-16 13:57] LABS: Iron 44 mcg/dL (30-160); Percent Iron Saturation 11 % (15-50); Total Iron Binding Capacity 402 mcg/dL (228-428); Unsaturated Iron Binding 358 ug/dL
== END 2024-09-16 08:45 | disposition home or self-care (01) ==
LOC: HO.HMGCLDS 08:44
PROVIDERS: PCP Internal Medicine; Visit Provider Internal Medicine
DX: Z00.01 Encounter for general adult medical examination with abnormal findings (principal); Z23 Encounter for immunization; E78.5 Hyperlipidemia, unspecified; I10 Essential (primary) hypertension; E66.9 Obesity, unspecified; D50.9 Iron deficiency anemia, unspecified; E11.29 Type 2 diabetes mellitus with other diabetic kidney complication; E11.3293 Type 2 diabetes mellitus with mild nonproliferative diabetic retinopathy without macular edema, bilateral; K80.20 Calculus of gallbladder without cholecystitis without obstruction; Z79.899 Other long term (current) drug therapy
CPT/HCPCS: 36415; 83540; 85025; 90471; 90656; 96127

== ENCOUNTER 2025-02-02 07:43 | Outpatient (REF) | payer OTHER, SELFPAY ==
[2025-02-02 10:39] LABS: Thyroid Stimulating Hormone 0.93 uIU/mL (0.32-4.0)
[2025-02-03 06:49] LABS: Follicle Stimulating Hormone 39.3 mIU/mL; Lutenizing Hormone 34.2 mIU/mL
== END 2025-02-02 07:44 | disposition home or self-care (01) ==
LOC: HO.LAB 07:43
PROVIDERS: PCP Internal Medicine; Visit Provider Advanced Practice Midwife
DX: Z01.419 Encounter for gynecological examination (general) (routine) without abnormal findings (principal); R23.2 Flushing; N93.9 Abnormal uterine and vaginal bleeding, unspecified; N92.1 Excessive and frequent menstruation with irregular cycle
CPT/HCPCS: 36415; 83001; 83002; 84443

== ENCOUNTER 2025-02-02 07:43 | Outpatient (AMB) | payer OTHER, SELFPAY ==
--- NOTE | 2025-02-02 07:45 | A.OFFVIS_ITS ---
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 She is doing well with charm filter operator helper concerns: Menses spacing proximally 4 months apart, cycles are heavy 3/5 days the 1st 2 days pretty intense for her. Currently anemic and takes iron b.i.d. post transfusion. Experiencing flashes. Currently sexually active. Denies any vaginal dryness or irritation. Attempting to eat a healthy diet with calcium and vitamin D and stays active with exercise. Last pap smear; 2022, negative. Last mammogram; 2024. Colonoscopy is UTD. Denies any family history of breast, ovarian or colon cancer. [facility] Medical History (Updated 02/02/25 @ 08:19 by Marilee Pedraza CNM) Encounter for well woman exam with routine gynecological exam Abnormal uterine bleeding (AUB) Asymptomatic cholelithiasis Mild nonproliferative diabetic retinopathy of both eyes associated with diabetes mellitus due to underlying condition Diabetes mellitus with microalbuminuria, without long-term current use of insulin Anemia, iron deficiency Obesity (BMI 30-39.9) Essential hypertension Dyslipidemia Plantar ulcer of right foot Gestational diabetes Surgical History Hx of tubal ligation History of Hx of appendectomy Family History Maternal Grandmother Pancreatic cancer Maternal Grandfather Esophageal cancer Social History Household Members: Spouse Housing: House Patient Tobacco Use Status: Never used Tobacco e-Cigarette/Vaping Use: Never Used service: No Current occupational status: employed Sexual orientation: Straight/Heterosexual Gender identity: Female Cognitive needs: No Hearing needs: No Vision needs: Yes Female Reproductive History Menstrual Age of Menarche: 11 control method: permanent sterilization Permanent Sterilization: BTL Total pregnancies: 2 Full term: 2 Number of Living Children: 2 Date of last pap smear: 08/27/22 (neg pap and hpv) Date of Mammogram: 04/06/24 (Birad 1) Review of Systems Const All systems reviewed & are unremarkable except as noted in HPI and below Reports as per HPI Eyes Reports no additional complaints ENT Reports no additional complaints Card Reports no additional complaints Resp Reports no additional complaints GI Reports as per HPI and Reports no additional complaints Reports as per HPI Musc Reports no additional complaints Skin/Breast Reports as per HPI Neuro Reports no additional complaints Psych Reports no additional complaints Endo Reports no additional complaints Олег/Lymph Reports no additional complaints Aller/Immun Reports no additional complaints Physical Exam Vital Signs: Last Vital Signs BP 122/84 02/02/25 07:46 BMI result Body Mass Index 36.4 Const General: cooperative, healthy appearing, no acute distress, well developed and alert Orientation/consciousness: patient oriented x3 HEENT Head: Yes normal to inspection Eyes General: appearance normal, both eyes and all related structures Neck Neck: Yes normal visual inspection Thyroid: Thyroid normal Chest Chest palpation & inspection: normal inspection of the chest and other (no puckering, dimpling, peau de orange, retraction, discharge, masses) Breast/axilla inspection: normal inspection of the breasts Breast/axilla palpation: normal palpation of the breasts Resp Effort & Inspection: normal respiratory effort GI Inspection: Yes normal to inspection and Yes scar Palpation (GI): Soft to palpation Rectal Exam - Female: deferred General: Yes bladder normal to palpation External Female Exam: normal external appearance and normal appearance of the urethra Speculum Exam - Vagina: normal appearance of the vagina, normal palpation and normal vaginal discharge Speculum Exam - Cervix: normal appearance of the cervix and normal palpation Bimanual exam- vagina & uterus: normal bimanual exam, normal palpation, uterine size normal, bladder normal to palpation, normal palpation and non-tender Bimanual Exam- Adnexa, other: no masses Skin General skin exam: no rashes or lesions noted Rashes: no rashes Neuro General: patient oriented x3 Cognition (Neuro): normal cognition Extrem General: Yes normal to inspection Psych Attitude: cooperative Thought process: Normal thought process present Assessment & Plan Assessment & Plan (1) Abnormal uterine bleeding (AUB): Code(s): N93.9 - Abnormal uterine and vaginal bleeding, unspecified Category: Medical Plan: Workup for AUB to include lab work, pelvic ultrasound and endometrial biopsy. Purpose for endometrial biopsies to rule out atypical cells including precancer and cancer of the uterus. Anticipatory guidance for procedure discussed advised to take 2 Tylenol with food and fluids 1 hour before procedure time. Menopause verses perimenopause. Menopause is definitive of 1 year of no menses or 12 months in succession. Report any abnormal uterine bleeding in example prolonged episodes, or short intervals less than 24 days. The patient expressed understanding and agreement with the plan of care. All of her questions and concerns were addressed to the best of my ability. Total time I personally spent on visit and management today: ?15 minutes. Time spent included review of pertinent office notes in the electronic health record; review of laboratory and imaging results; review of personal family medical history; performing physical exam; discussing diagnosis and plan of care with the patient; documenting the encounter in the EMR. This note is constructed using voice recognition software. While every effort has been made to ensure accuracy, ribbon winder errors may have been included. (2) Encounter for well woman exam with routine gynecological exam: Code(s): Z01.419 - Encounter for gynecological examination (general) (routine) without abnormal findings Category: Medical Plan Discussed: Current recommendations for pap smears per ASCCP guidelines. Breast awareness, periodic self breast exams and yearly mammogram. Maintain a healthy lifestyle, well balanced diet including Calcium 1,200 mg and Vitamin D 600 IU daily, and routine exercise. Patient verbalizes understanding and agrees to the plan of care. She was given opportunity to ask questions and all questions were answered to the best of my ability. RTO in 1 year for annual charm filter operator helper exam. This note is constructed using voice recognition software. While every effort has been made to ensure accuracy, ribbon winder errors may have been included. Orders: Orders US pelvic and transvaginal Today N93.9 - Abnormal uterine and vaginal bleeding, unspecified Lutenizing Hormone Today N93.9 - Abnormal uterine and vaginal bleeding, unspecified Follicle Stimulating Hormone Today N93.9 - Abnormal uterine and vaginal bleeding, unspecified, R23.2 - Flushing Thyroid Stimulating Hormone Today N92.1 - Excessive and frequent menstruation with irregular cycle, N93.9 - Abnormal uterine and vaginal bleeding, unspecified Coding Level of Care Code Est Pt Level 2 (85627) Est Pt Prev Care 40-64y(99469) Diagnoses Abnormal uterine bleeding (AUB) N93.9 Encounter for well woman exam with routine gynecological exam Z01.419
--- OUTSIDE RECORDS SUMMARY | 2025-02-02 07:45 | XMS_ITS | Patient Health Record ---
Author Organization [facility] Address [address] [place] [address] Care Team Providers Care Rubber Calender Helper Name Role Phone Sukhjinder PHELAN, Briana Carrero Primary Care Provider Un available Ahmetsally Alexus Unavailable [phone] Allergies Allergen (clinical drug ingredient) Drug/Non Drug [...] Problem Status W/U Status Risk Notes Problem [id number] Hammer toe of left foot (M20.42) Active confirmed Problem 733057754 Type 2 diabetes mellitus without complication, without long-term current use of insulin (E11.9) Active confirmed Plan Of Treatment No Information Insurance Providers Payer Name Payer Address Payer Phone Subscriber Number Group Number Insured Name Patient Relationship to Insured Coverage Start Date Coverage End Date [facility] [address] [address] [place] [address] [id number] Lorna Dickson Self - patient is the insured Medical (General) History Medical History History ICD Code Diabetes mellitus Chicken pox Surgical History Surgery Date(Month/Year) appendectomy 1984 section 06/24/1997, 01/29/2002 tubal ligation 01/29/2002
[2025-02-02 07:46] VITALS: BP 122/84; BMI 36.4
== END 2025-02-02 08:24 | disposition home or self-care (01) ==
LOC: HO.HWS 07:43
PROVIDERS: PCP Internal Medicine; Visit Provider Advanced Practice Midwife
DX: N93.9 Abnormal uterine and vaginal bleeding, unspecified (principal); Z01.419 Encounter for gynecological examination (general) (routine) without abnormal findings
CPT/HCPCS: 99212; 99396; 99459

== ENCOUNTER 2025-03-17 11:25 | Outpatient (REF) | payer OTHER, SELFPAY ==
--- NOTE | ~2025-03-17 | US_ITS ---
EXAMINATION: US PELVIS CLINICAL INFORMATION: Abnormal uterine bleeding COMPARISON: September 06, 2024 TECHNIQUE: Ultrasound of the pelvis is performed using both transabdominal and transvaginal transducers along with Doppler. Transvaginal imaging is performed due to inadequate visualization transabdominally. FINDINGS: Uterus: The uterus is anteverted and measures 9.7 x 6.0 x 6.3 cm. The double wall endometrial thickness is 2 mm. The uterus is smooth in contour and has normal myometrial echogenicity. No visible fibroid. Adnexa: Right ovary is nonvisualized. Left ovary measures 3.4 x 2.1 x 2.0 cm. US/US pelvic and transvaginal IMPRESSION: Nonvisualized right ovary. Unremarkable exam otherwise. Electronically signed by: Haseeb Licona MD 03/17/2025 11:54 AM EDT
--- OUTSIDE RECORDS SUMMARY | 2025-03-17 12:12 | XMS_ITS | Patient Health Record ---
Author Organization [facility] Address [address] [place] [address] Care Team Providers Care Puppet Engineer Name Role Phone Sukhjinder PHELAN, Briana Primary Care Provider Ton Arauz Jr Unavailable Allergies Allergen (clinical drug ingredient) Drug/Non Drug Allergy documented on EMR Reaction Allergy Type Onset Date Status amoxicillin Amoxicillin Unknown Drug Allergy Act sheldon Reason For Referral [...] HCl 1000 MG Oral for 90 Active Immunizations Vaccine Route Administration Date Status Comme nts Influenza Unknown 09/04/2022 Administered Social History Tobacco Use: Social History Observation Description Date Details (start date - stop date) Never Smoker NA - NA Tobacco Use/Smoking Question Answer Notes Patient is a nonsmoker Alcohol Screen Question Answer Notes Did you have a drink containing alcohol in the p ast year? No Points 0 Interpretation Negative Problems Problem Type SNOMED Code ICD Code Onset Dates Problem Status W/U Status Risk Notes Problem [id number] Colon cancer screening (Z12.11) Active confirmed Problem 281808346 Encounter for other preprocedural examination (Z01.818) Active confirmed Problem [id number] penitentiary (current) use of oral hypoglycemic drugs (Z79.84) Active confirmed Plan Of Treatment Future Test Test Name Order Date COLONOSCOPY 03/12/2023 Insurance Providers Payer Name Payer Address Payer Phone Subscriber Number Group Number Insured Name Patient Relationship to Insured Coverage Start Date Coverage End Date [facility] [address] [place] [address] [id number] TORSTEN ALVAREZ Self - patient is the insured Medical (General) History Medical History History ICD Code Diabetes mellitus type 2 Hyperlipidemia Hypertension Elevated body mass index Surgical History Surgery Date(Month/Year) Appendectomy 1984 section x2 1996,2001 Tubal ligation 2002
--- OUTSIDE RECORDS SUMMARY | 2025-03-17 12:12 | XMS_ITS | Patient Health Record ---
Author Organization [facility] Address [address] [facility] [place] [address] Care Team Providers Care Flange Machine Operator Name Role Phone Sukhjinder PHELAN, Briana Carrero Primary Care Provider Un available Ahmetsally Alexus Unavailable [phone] Allergies Allergen (clinical drug ingredient) Drug/Non Drug Allergy documented on EMR Reaction Allergy Type Onset Date Status amoxicillin Amoxicillin rash Drug Allergy Act sheldon Reason For Referral No Information Medications Medication SIG (Take, Route, Frequency, Duration) Notes Start Date End Date Status Rosuvastatin Calcium 5 MG 1 tablet Orally Once a day; Duration: 30 day(s) 2x per week Active metFORMIN HCl 1000 MG 1 tablet with a me al Orally Once a day; Duration: 30 day(s) Active Extra Depth Orthopedic Shoes (1 Pair) with Customized Heat Molded Multidensity Innersoles (3 Pair) as directed Dx: NIDDM (E11.9), Hammertoe Foot Deformity (M20.41,M20.42), Preulcerative Skin Lesion(s) (L85.1) 04/24/2022 Active Lisinopril 5 MG 1 tablet Orally Once a day; Duration: 30 day(s) Active Social History Tobacco Use: [...] Problem Status W/U Status Risk Notes Problem Acquired hammer toe of left foot (3872221471442558 ) Hammer toe of left foot (M20.42) Active confirmed Problem Type II diabetes mellitus without complication (291427420) Type 2 diabetes mellitus without complication, without long-term current use of insulin (E11.9) Active confirmed Plan Of Treatment No Information Insurance Providers Payer Name Payer Address Payer Phone Subscriber Number Group Number Insured Name Patient Relationship to Insured Coverage Start Date Coverage End Date [facility] [address] [address] [place] [address] [id number] Lorna Dickson Self - patient is the insured Medical (General) History Medical History History ICD Code Diabetes mellitus Chicken pox Surgical History Surgery Date(Month/Year) appendectomy 1984 section 06/24/1997, 01/29/2002 tubal ligation 01/29/2002
== END 2025-03-17 11:26 | disposition home or self-care (01) ==
LOC: HO.US 11:25
PROVIDERS: PCP Internal Medicine; Visit Provider Advanced Practice Midwife
DX: N93.9 Abnormal uterine and vaginal bleeding, unspecified (principal)
CPT/HCPCS: 76830; 76856

== ENCOUNTER → 2025-03-17 11:26 | Outpatient (BNV) | payer OTHER, SELFPAY | PROVIDERS: PCP Internal Medicine; Visit Provider Radiology Diagnostic Radiology | DX: N93.9 Abnormal uterine and vaginal bleeding, unspecified (principal) | CPT/HCPCS: 76830; 76856 ==

== ENCOUNTER 2025-04-11 07:27 | Outpatient (REF) | payer OTHER, SELFPAY ==
--- NOTE | ~2025-04-11 | MM_ITS ---
EXAMINATION: MM SCREENING DIGITAL BREAST TOMOSYNTHESIS, BILATERAL CLINICAL INFORMATION: Screening. Asymptomatic. COMPARISON: Mammography: Comparison is made with available priors TECHNIQUE: Digital breast mammography with tomosynthesis is performed in both the craniocaudal and mediolateral oblique views along with computer-aided detection (CAD). FINDINGS: There are scattered areas of fibroglandular density (ACR BI-RADS breast composition Category b). Right skin mole lower central breast posterior depth. There are no significant masses, abnormal calcifications, or other abnormalities. MM/MM tomosynthesis screening BI IMPRESSION: No mammographic evidence of malignancy. ASSESSMENT: BI-RADS BI-RADS 2 - Benign Findings RECOMMENDATION: Routine annual mammography screening. 1 year F/U This examination should not preclude the clinical evaluation of a suspicious palpable abnormality. This patient's information was entered into a reminder system with a target due date for their next mammogram. Electronically signed by: Ade Llamas DO 04/13/2025 12:14 PM EDT
--- OUTSIDE RECORDS SUMMARY | 2025-04-11 07:30 | XMS_ITS | Patient Health Record ---
Author Organization [facility] Address [address] [facility] [address] [place] [address] Care Team Providers Care Electrical Prospecting Supervisor Name Role Phone Sukhjinder PHELAN, Briana Carrero Primary Care Provider Un available AhmetAlexus zavala Unavailable [phone] Barreto, Chel Unavailable [phone] Allergies Allergen (clinical drug ingredient) Drug/Non Drug Allergy documented on EMR Reaction Allergy Type Onset Date Status amoxicillin Amoxicillin rash Drug Allergy Act sheldon Results Component Value Reference Range Notes HEMOGLOBIN A1C (GLYCOHEMOGLO BIN) Reviewed date:03/23/2025 04:09:17 PM Interpretation: Performing Lab: Notes/Report: HEMOGLOBIN A1C % (HH) 5.0 Reason For Referral No Information Medications Medication SIG (Take, Route, Frequency, Duration) Notes Start Date End Date Status Extra Depth Orthopedic Shoes (1 Pair) with Customized Heat Molded Multidensity Innersoles (3 Pair) as directed Dx: NIDDM (E11.9), Hammertoe Foot Deformity (M20.41,M20.42), Preulcerative Skin Lesion(s) (L85.1) 04/24/2022 Active Lisinopril 5 MG 1 tablet Orally Once a day; Duration: 30 day(s) Active metFORMIN HCl 1000 MG 1 tablet with a me al Orally Once a day; Duration: 30 day(s) Active Rosuvastatin Calcium 5 MG 1 tablet Orally Once a day; Duration: 30 day(s) 2x per week Active Immunizations Vaccine Route Administration Date Status Comme nts Influenza Unknown 04/19/2024 Administered Social History Tobacco Use: Social History Observation Description Date Details (start date - stop date) Never Smoker NA - NA Tobacco Control (Standard) Question Answer Notes Tobacco use: Nonsmoker Additional Findings: Tobacco non-user Current no nsmoker AUDIT-C (Standard) Question Answer Notes Did you have a drink containing alcohol in the p ast year? No Points 0 Interpretation Negative Problems Problem Type SNOMED Code ICD Code Onset Dates Problem Status W/U Status Risk Notes Problem Plantar wart (20061929) Plantar wart (B07.0) Active confirmed Problem Acquired hammer toe of left foot (6344520270180475 ) Hammer toe of left foot (M20.42) Active confirmed Problem Type II diabetes mellitus without complication (040860804) Type 2 diabetes mellitus without complication, without long-term current use of insulin (E11.9) Active confirmed Vital Signs Blood pressure diastolic 65 mm Hg 03/23/2025 Height 5 ft 7 in in 03/23/2025 Blood pressure systolic 128 mm Hg 03/23/2025 Weight 230 lbs 03/23/2025 BMI 36.02 kg/m2 03/23/2025 Procedures Procedure Date Ordered Date Performed Result Body Sit e 67062-Jejj Destruction, 08-3103/23/2025 N/A Encounters Encounter Location Date Provider Diagnosis [facility] [address] [address] 03/23/2025 Chel Barreto Right foot pain M79.671 and Plantar wart B07.0 [facility] [address] [address] 03/23/2025 Alexus Childers Assessments Encounter Date Diagnosis (ICD Code) Assessment Notes Treatment Notes Treatment Clinical Notes Section Notes 03/23/2025 Right foot pain (ICD-10 - M79.671) 03/23/2025 Plantar wart (ICD-10 - B07.0) Plan Of Treatment Pending Test Test Name Order Date 08261-Wedp Destruction, 08-3103/23/2025 Insurance Providers Payer Name Payer Address Payer Phone Subscriber Number Group Number Insured Name Patient Relationship to Insured Coverage Start Date Coverage End Date [facility] re-[address] [address] [address] [place] [address] [phone] [id number] Lorna Dickson Self - patient is the insured Medical (General) History Medical History History ICD Code Diabetes mellitus Chicken pox Surgical History Surgery Date(Month/Year) appendectomy 1984 section 06/24/1997, 01/29/2002 tubal ligation 01/29/2002
--- OUTSIDE RECORDS SUMMARY | 2025-04-11 07:30 | XMS_ITS | Patient Health Record ---
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) Active confirmed Plan Of Treatment Future Test Test Name Order Date COLONOSCOPY 03/12/2023 Insurance Providers Payer Name Payer Address Payer Phone Subscriber Number Group Number Insured Name Patient Relationship to Insured Coverage Start Date Coverage End Date [facility] [address] [place] [address] [id number] TORSTEN ALVAREZ Self - patient is the insured Medical (General) History Medical History History ICD Code Diabetes mellitus type 2 Hyperlipidemia Hypertension Elevated body mass index Surgical History Surgery Date(Month/Year) Appendectomy 1984 section x2 1996,2001 Tubal ligation 2002
== END 2025-04-11 07:28 | disposition home or self-care (01) ==
LOC: HO.MAMMO 07:27
PROVIDERS: PCP Internal Medicine; Visit Provider Internal Medicine
DX: Z12.31 Encounter for screening mammogram for malignant neoplasm of breast (principal)
CPT/HCPCS: 77063; 77067

== ENCOUNTER → 2025-04-11 07:30 | Outpatient (BNV) | payer OTHER, SELFPAY | PROVIDERS: PCP Internal Medicine; Visit Provider Internal Medicine | DX: Z12.31 Encounter for screening mammogram for malignant neoplasm of breast (principal) | CPT/HCPCS: 77063; 77067 ==

== ENCOUNTER 2025-04-12 11:37 | Outpatient (AMB) | payer OTHER, SELFPAY ==
--- NOTE | 2025-04-12 11:41 | A.OFFVIS_ITS ---
Vital Signs 04/12/25 11:47 BP 122/80 Intake Visit Reasons: EMB/ Ultra sound follow up Automotive Service Manager: Automotive Service Manager Present (Airam) Allergies amoxicillin Adverse Reaction (Mild, Verified 04/12/25 11:41) Rash Is last menstrual period known: Yes Last menstrual period: 02/23/25 HPI Comments Details: Patient is here today for a follow up pelvic ultrasound and endometrial biopsy procedure. History of menses spacing, w/increased bleeding episodes, asymptomatic anemia in August requiring transfusion. She reports an episode in January of HMB 3/6d. [facility] Medical History (Updated 02/02/25 @ 08:19 by Marilee Pedraza CNM) Encounter for well woman exam with routine gynecological exam Abnormal uterine bleeding (AUB) Asymptomatic cholelithiasis Mild nonproliferative diabetic retinopathy of both eyes associated with diabetes mellitus due to underlying condition Diabetes mellitus with microalbuminuria, without long-term current use of insulin Anemia, iron deficiency Obesity (BMI 30-39.9) Essential hypertension Dyslipidemia Plantar ulcer of right foot Gestational diabetes Surgical History Hx of tubal ligation History of Hx of appendectomy Family History Maternal Grandmother Pancreatic cancer Maternal Grandfather Esophageal cancer Social History Household Members: Spouse Housing: House Patient Tobacco Use Status: Never used Tobacco e-Cigarette/Vaping Use: Never Used service: No Current occupational status: employed Sexual orientation: Straight/Heterosexual Gender identity: Female Cognitive needs: No Hearing needs: No Vision needs: Yes Female Reproductive History Menstrual Age of Menarche: 11 Date of last menstrual period: 02/23/25 Review of Systems Const All systems reviewed & are unremarkable except as noted in HPI and below Physical Exam Const General: cooperative, healthy appearing and no acute distress Orientation/consciousness: patient oriented x3 GI Inspection: Yes normal to inspection Palpation (GI): Soft to palpation and Other GI palpation findings present (Nontender) Rectal Exam - Female: visual inspection normal General: Yes bladder normal to palpation External Female Exam: normal appearance of the urethra Speculum Exam - Vagina: normal appearance of the vagina, normal palpation, normal vaginal discharge and vagina atrophic Speculum Exam - Cervix: normal appearance of the cervix and normal palpation Bimanual exam- vagina & uterus: normal bimanual exam, normal palpation, uterine size normal, bladder normal to palpation, normal palpation, uterine shape normal and non-tender Bimanual Exam- Adnexa, other: normal adnexae Neuro General: patient oriented x3 Office Procedures Endometrial Biopsy Details: The patient is here today for an endometrial biopsy due to AUB to rule out any pathology including atypical, hyperplasia or cancer cells of the uterus. She was counseled regarding anticipatory guidance for the procedure including the risks for pain, infection, bleeding, perforation, potential injury to the tissues may include the cervix, uterus, tubes, bladder and bowels. These injuries may include further treatment and evaluation including surgery, blood transfusions, antibiotics, hospitalizations and anesthesia. Permanent injury and scarring can occur. She was consented for the procedure, and the consent forms were signed. She is agreeable to have the procedure today. All questions were answered. Endometrial Biopsy Procedure: The patient was placed in the dorsal lithotomy position and a sterile speculum inserted. Using aseptic technique for the procedure. The cervix was cleansed with Betadine x 3 swabs. A single toothed tenaculum was placed on the cervix for stabilization and the uterus was sounded to 8 cm with a 4mm pipelle, and tissue sample obtained, after the 2nd pass the patient could no longer tolerate the discomfort and asked to stop, the procedure was discontinued. Minimal bleeding was observed. The tissue sample was placed in formalin in a patient labeled container by staff assisting and sent to the pathology department for processing and interpretation. The patient tolerate the procedure well and was in good condition when leaving the department. Endometrial Biopsy Post Procedure Care: Nothing in the vagina including: tampons, douching or intimacy until all the bleeding has subsided. There may be some post procedure bleeding for several days, this bleeding is usually light and may turn to a light brown or pink color. Mild cramps may occurs. Nothing in the vaginal including: tampons, douching, or intimacy until all the bleeding has subsided. You may take an over the counter mild analgesic such as Tylenol or Advil (if no allergies) per the manufactures recommendation on dosing, frequency, and follow the directions completely. Call the office if any: fever (over 100.4), flu like symptoms, abdominal pain (worse than cramping), foul smelling, infected appearing vaginal discharge, or heavy bleeding. If indicated: Use condoms to prevent and STI's, and only after the bleeding has stopped completely. Return to the office in 2 weeks for results and plan of care. This note is constructed using voice recognition software. While every effort has been made to ensure accuracy, team primary care physician errors may have been included. [id number]-Iaqsgztosod Biopsy Results AMB Test Urine AMB Test Urine Negative Last Edit by DESTINY Vera on 04/12/25 11:51 Results Reviewed Results Reviewed: [address] [address] Ultrasound Report Signed Patient: Lorna Dickson MR#: [id number] : 1970 Acct:[id number] Age/Sex: 54 / F ADM Date: 03/17/25 Loc: .[place] Attending Dr: Marilee Pedraza CNM Ordering Physician: Marilee Pedraza CNM Date of Service: 03/17/25 Procedure(s): US pelvic and transvaginal Accession Number(s): [id number] cc: Briana Slaughter MD; Marilee Pedraza CNM~ EXAMINATION: US PELVIS CLINICAL INFORMATION: Abnormal uterine bleeding COMPARISON: September 06, 2024 TECHNIQUE: Ultrasound of the pelvis is performed using both transabdominal and transvaginal transducers along with Doppler. Transvaginal imaging is performed due to inadequate visualization transabdominally. FINDINGS: Uterus: The uterus is anteverted and measures 9.7 x 6.0 x 6.3 cm. The double wall endometrial thickness is 2 mm. The uterus is smooth in contour and has normal myometrial echogenicity. No visible fibroid. Adnexa: Right ovary is nonvisualized. Left ovary measures 3.4 x 2.1 x 2.0 cm. US/US pelvic and transvaginal IMPRESSION: Nonvisualized right ovary. Unremarkable exam otherwise. Electronically signed by: Haseeb Licona MD 03/17/2025 11:54 AM EDT Dictated By: Haseeb Licona MD Signed By: <Electronically signed by Haseeb Licona MD in OV> 03/17/25 1154 DD/ 1130 TD/TT: 03/17/25 1139 Clinical Rn Manager: Assessment & Plan Assessment & Plan (1) Abnormal uterine bleeding (AUB): Code(s): N93.9 - Abnormal uterine and vaginal bleeding, unspecified Category: Medical Plan: Discussed ultrasound findings- IMPRESSION: Nonvisualized right ovary. Unremarkable exam otherwise. Endometrial thickness 2 mm. Counseled regarding findings, including blood work. FSH and LH are elevated in menopausal ranges, she has not gone a year without bleeding consecutively. Last LMP was heavy. Plan repeat CBC. Plan EMB procedure completed. See procedure notes. The patient expressed understanding and agreement with the plan of care. All of her questions and concerns were addressed to the best of my ability. This note is constructed using voice recognition software. While every effort has been made to ensure accuracy, team primary care physician errors may have been included. Orders: Orders AMB HCG Urine Test Today N93.9 - Abnormal uterine and vaginal bleeding, unspecified CT NG by PCR Vag/Cerv Today N93.9 - Abnormal uterine and vaginal bleeding, unspecified Bacterial Vaginosis Panel Today N93.9 - Abnormal uterine and vaginal bleeding, unspecified Surgical Today N93.9 - Abnormal uterine and vaginal bleeding, unspecified Complete Blood Count no Diff Today N93.9 - Abnormal uterine and vaginal bleeding, unspecified Coding Level of Care Code Procedure Only Diagnoses Abnormal uterine bleeding (AUB) N93.9 CPT Codes Endometrial Biopsy - CPT: 07499-Nyxtlebzdpu Biopsy ([id number])
[2025-04-12 11:47] VITALS: BP 122/80
--- OUTSIDE RECORDS SUMMARY | 2025-04-12 12:33 | XMS_ITS | Patient Health Record ---
Author Organization [facility] Address [address] [facility] [address] [place] [address] Care Team Providers Care Technical Photographer Name Role Phone Sukhjinder PHELAN, Briana Carrero Primary Care Provider Un available AhmetAlexus zavala Unavailable [phone] Barreto, Chel Unavailable [phone] Allergies Allergen (clinical drug ingredient) Drug/Non Drug [...] W/U Status Risk Notes Problem Plantar wart (44612621) Plantar wart (B07.0) Active confirmed Problem Hammer toe of left foot (M20.42) Active confirmed Problem Type II diabetes mellitus without complication (302532254) Type 2 diabetes mellitus without complication, without long-term current use of insulin (E11.9) Active confirmed Vital Signs Blood pressure diastolic 65 mm Hg 03/23/2025 Height 5 ft 7 in in 03/23/2025 Blood pressure systolic 128 mm Hg 03/23/2025 Weight 230 lbs 03/23/2025 BMI 36.02 kg/m2 03/23/2025 Procedures Procedure Date Ordered Date Performed Result Body Sit e 97397-Jwka Destruction, -03/23/2025 N/A Encounters Encounter Location Date Provider Diagnosis [facility] [address] [address] 03/23/2025 Chel Barreto Right foot pain M79.671 and Plantar wart B07.0 [facility] [address] [address] 03/23/2025 Alexus Childers Assessments Encounter Date Diagnosis (ICD Code) Assessment Notes Treatment Notes Treatment Clinical Notes Section Notes 03/23/2025 Right foot pain (ICD-10 - M79.671) 03/23/2025 Plantar wart (ICD-10 - B07.0) Plan Of Treatment Pending Test Test Name Order Date 69164-Srhx Destruction, -03/23/2025 Insurance Providers Payer Name Payer Address Payer Phone Subscriber Number Group Number Insured Name Patient Relationship to Insured Coverage Start Date Coverage End Date [facility] re-[address] [address] [address] [place] [address] [phone] [id number] Lorna Dickson Self - patient is the insured Medical (General) History Medical History History ICD Code Diabetes mellitus Chicken pox Surgical History Surgery Date(Month/Year) appendectomy 1984 section 06/24/1997, 01/29/2002 tubal ligation 01/29/2002
--- OUTSIDE RECORDS SUMMARY | 2025-04-12 12:33 | XMS_ITS | Patient Health Record ---
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) Active confirmed Plan Of Treatment Future Test Test Name Order Date COLONOSCOPY 03/12/2023 Insurance Providers Payer Name Payer Address Payer Phone Subscriber Number Group Number Insured Name Patient Relationship to Insured Coverage Start Date Coverage End Date [facility] [address] [place] [address] [id number] TORSTEN ALVAREZ Self - patient is the insured Medical (General) History Medical History History ICD Code Diabetes mellitus type 2 Hyperlipidemia Hypertension Elevated body mass index Surgical History Surgery Date(Month/Year) Appendectomy 1984 section x2 1996,2001 Tubal ligation 2002
== END 2025-04-12 12:35 | disposition home or self-care (01) ==
LOC: HO.HWS 11:37
PROVIDERS: PCP Internal Medicine; Visit Provider Advanced Practice Midwife
DX: N93.9 Abnormal uterine and vaginal bleeding, unspecified (principal)
CPT/HCPCS: 58100

== ENCOUNTER 2025-04-12 11:37 | Outpatient (REF) | payer OTHER, SELFPAY ==
[2025-04-12 14:31] LABS: Hematocrit 35.3 % (37.0-47.0); Mean Corpuscular HGB Conc 33.4 g/dl (31.0-35.0); Mean Corpuscular Hemoglobin 29.3 pg (27.0-33.0); Mean Corpuscular Volume 87.6 fL (80.0-98.0); NRBC Abs Auto 0.000 X10*3/uL (0.0-0.012); NRBC Pct Auto 0.0 /100WBC (0.0-0.2); Platelet Count 190 X10*3/uL (160-400); Red Blood Count 4.03 X10*6/uL (4.20-5.50); White Blood Count 7.7 X10*3/uL (4.8-10.8)
[2025-04-12 14:39] LABS: Hemoglobin 11.8 g/dl (12.0-16.0)
[2025-04-12 20:49] LABS: Bacterial Vaginosis PCR NEGATIVE (Negative); Candida Group PCR NOT DETECTED (Not Detect); Candida glab krusei PCR NOT DETECTED (Not Detect); Trichomonas vaginalis PCR NOT DETECTED (Not Detect)
[2025-04-12 22:25] LABS: CT PCR NOT DETECTED (Not Detect.); NG PCR NOT DETECTED (Not Detect.)
== END 2025-04-12 11:38 | disposition home or self-care (01) ==
LOC: HO.LNP 11:37
PROVIDERS: PCP Internal Medicine; Visit Provider Advanced Practice Midwife
DX: N93.9 Abnormal uterine and vaginal bleeding, unspecified (principal); Z32.02 Encounter for pregnancy test, result negative
CPT/HCPCS: 58100; 81025; 81515; 85027; 87491; 87591; 88305

== ENCOUNTER 2025-04-12 12:20 | Outpatient (REF) | payer OTHER, SELFPAY | END 2025-04-12 12:21 | disposition home or self-care (01) | LOC: HO.LAB 12:20 | PROVIDERS: PCP Internal Medicine; Visit Provider Advanced Practice Midwife | DX: Z13.89 Encounter for screening for other disorder (principal) ==

== ENCOUNTER 2025-04-14 15:44 | Outpatient (AMB) | payer OTHER, SELFPAY ==
--- NOTE | 2025-04-14 15:44 | A.OFFVIS_ITS ---
Intake Visit Reasons: TV EMB results Intake Note: cell #[phone] Allergies amoxicillin Adverse Reaction (Mild, Verified 04/12/25 11:41) Rash HPI Comments Details: Tele Health Visit Total time I personally spent on visit and management today: 18 minutes. Time spent included review of pertinent office notes in the electronic health record; review of laboratory and imaging results; review of personal family medical history; discussing diagnosis and plan of care with the patient; documenting the encounter in the EMR. Patient presents to discuss: Endometrial biopsy results. Prior episode of bleeding in August was x3 days but very intense leading to significant anemia, bled again in February x3 days without the same amount of blood loss. Lab work reviewed hemoglobin 11.8, FSH was previously drawn was 39.3 and LH was 34.2. Menses have been spacing for months at a time, she has not gone a full 12 months without a cycle. She is concerned about the intense volume of blood loss that she experienced in August and feels that it had limited her ability to go places and do things. She was asymptomatic at the time of diagnoses. Takes iron regularly, followed by hematology. [facility] Medical History Encounter for well woman exam with routine gynecological exam Abnormal uterine bleeding (AUB) Asymptomatic cholelithiasis Mild nonproliferative diabetic retinopathy of both eyes associated with diabetes mellitus due to underlying condition Diabetes mellitus with microalbuminuria, without long-term current use of insulin Anemia, iron deficiency Obesity (BMI 30-39.9) Essential hypertension Dyslipidemia Plantar ulcer of right foot Gestational diabetes Surgical History Hx of tubal ligation History of Hx of appendectomy Family History Maternal Grandmother Pancreatic cancer Maternal Grandfather Esophageal cancer Social History Household Members: Spouse Housing: House Patient Tobacco Use Status: Never used Tobacco e-Cigarette/Vaping Use: Never Used service: No Current occupational status: employed Sexual orientation: Straight/Heterosexual Gender identity: Female Cognitive needs: No Hearing needs: No Vision needs: Yes Female Reproductive History Menstrual Age of Menarche: 11 Telehealth Telehealth Telehealth Platform: Telephone Location of provider rendering services: practice address Location of patient: address on file Patient Identification confirmed using: Name, : Yes Telehealth method: video Patient verbally consented to treatment: Yes Patient verbally consented to billing insurance company: Yes Patient informed of any privacy concerns related to visit: Yes Results Reviewed Results Reviewed: Name: Lorna Dickson Age/Sex: 54/F Attending: Marilee Pedraza CNM : 1970 Submitted by: Marilee Pedraza CNM Copies to: Briana Slaughter MD MR #: [id number] Status: DEP REF Collected: 04/12/25 Location: [facility] Received: 04/13/25 Diagnosis Endometrium, biopsy: - Superficial fragments of inactive endometrium; no atypia or hyperplasia identified. - Few fragments of benign degenerated endocervical and squamous epithelium. Clinical History AUB Microscopic Description Microscopic sections reviewed. Material Received Endometrial biopsy Gross Description Received in formalin labeled ?endometrial biopsy? are fragments of red-negro soft tissue mixed with mucus and clotted blood forming an aggregate measuring 1.1 x 0.9 x 0.2 cm which is wrapped in lens paper and entirely submitted for microscopic examination, multiple pieces in cassette A. ([facility]) Copies To Briana Slaughter MD [facility], [address] [id number] Marilee Pedraza CNM [facility] [address] [place] [address] Drive [address] [place], [place] [id number] NOTE: Unless otherwise stated, all tissue is formalin-fixed and paraffin- embedded. Some or all of the immunohistochemical tests reported herein may have been developed and their performance characteristics determined by [facility]. They have not been cleared or approved by the U.S. Food and Drug Administration (FDA). However, the FDA has determined that such clearance or approval is not necessary. This laboratory is certified under the Clinical Laboratory Improvement Amendments of 1988 (CLIA) as qualified to perform high complexity clinical laboratory testing. Patient: Lorna Dickson Age/Sex: 54/F MR#: [id number] Page 1 of 2 Assessment & Plan Assessment & Plan (1) Abnormal uterine bleeding (AUB): Code(s): N93.9 - Abnormal uterine and vaginal bleeding, unspecified Category: Medical Plan: Discussed: Endometrial biopsy results- superficial fragments of inactive endometrium; no atypia or hyperplasia identified. - Few fragments of benign degenerated endocervical and squamous epithelium. Limited sample and may need repeat. Menopause verses perimenopause. Menopause is definitive of 1 year of no menses or 12 months in succession. Report any abnormal uterine bleeding in example prolonged episodes, or short intervals less than 24 days. Observe bleeding pattern for now report any abnormal heavy bleeding patterns for immediate evaluation. Treatment options to include Mirena IUD, progesterone, and uterine ablation. To be scheduled with Dr. Danielson for consultation on her options. Plan Discussed: EMB results-limited sample may need to be repeated, no atypia or hyperplasia. Treatment options for AUB-Mirena (declines), progesterone, possible ablation, observation. Menopause verses perimenopause. Menopause is definitive of 1 year of no menses or 12 months in succession. Report any abnormal uterine bleeding in example prolonged episodes, or short intervals less than 24 days. Consult with the empty to be made for options. Coding Level of Care Code Tele Est Pt Level 3 (79858) Diagnoses Abnormal uterine bleeding (AUB) N93.9
--- OUTSIDE RECORDS SUMMARY | 2025-04-14 16:06 | XMS_ITS | Patient Health Record ---
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 (Z79.84) Active confirmed Plan Of Treatment Future Test Test Name Order Date COLONOSCOPY 03/12/2023 Insurance Providers Payer Name Payer Address Payer Phone Subscriber Number Group Number Insured Name Patient Relationship to Insured Coverage Start Date Coverage End Date [facility] [address] [place] [address] [id number] TORSTEN ALVAREZ Self - patient is the insured Medical (General) History Medical History History ICD Code Diabetes mellitus type 2 Hyperlipidemia Hypertension Elevated body mass index Surgical History Surgery Date(Month/Year) Appendectomy 1984 section x2 1996,2001 Tubal ligation 2002
--- OUTSIDE RECORDS SUMMARY | 2025-04-14 16:06 | XMS_ITS | Patient Health Record ---
Author Organization [facility] Address [address] [place] [address] Care Team Providers Care Student Activities Director Name Role Phone Sukhjinder PHELAN, Briana Carrero Primary Care Provider Un available AhmetAlexus zavala Unavailable [phone] Barreto, Chel Unavailable [phone] Allergies Allergen (clinical drug ingredient) Drug/Non Drug [...] W/U Status Risk Notes Problem Plantar wart (20414952) Plantar wart (B07.0) Active confirmed Problem Acquired hammer toe of left foot (0549454542674951 ) Hammer toe of left foot (M20.42) Active confirmed Problem Type II diabetes mellitus without complication (447849483) Type 2 diabetes mellitus without complication, without long-term current use of insulin (E11.9) Active confirmed Vital Signs Blood pressure diastolic 65 mm Hg 03/23/2025 Height 5 ft 7 in in 03/23/2025 Blood pressure systolic 128 mm Hg 03/23/2025 Weight 230 lbs 03/23/2025 BMI 36.02 kg/m2 03/23/2025 Procedures Procedure Date Ordered Date Performed Result Body Sit e 59224-Vzad Destruction, 08-3103/23/2025 N/A Encounters Encounter Location Date Provider Diagnosis [facility] [address] [address] 03/23/2025 Chel Barreto Right foot pain M79.671 and Plantar wart B07.0 [facility] [address] [address] 03/23/2025 Alexus Childers Assessments Encounter Date Diagnosis (ICD Code) Assessment Notes Treatment Notes Treatment Clinical Notes Section Notes 03/23/2025 Right foot pain (ICD-10 - M79.671) 03/23/2025 Plantar wart (ICD-10 - B07.0) Plan Of Treatment Pending Test Test Name Order Date 11625-Icxr Destruction, 08-3103/23/2025 Insurance Providers Payer Name Payer Address Payer Phone Subscriber Number Group Number Insured Name Patient Relationship to Insured Coverage Start Date Coverage End Date [facility] re-[id number] [address] [address] [place] [address] [id number] Lorna Dickson Self - patient is the insured Medical (General) History Medical History History ICD Code Diabetes mellitus Chicken pox Surgical History Surgery Date(Month/Year) appendectomy 1984 section 06/24/1997, 01/29/2002 tubal ligation 01/29/2002
== END 2025-04-15 10:51 | disposition home or self-care (01) ==
LOC: HO.HWS 15:44
PROVIDERS: PCP Internal Medicine; Visit Provider Advanced Practice Midwife
DX: N93.9 Abnormal uterine and vaginal bleeding, unspecified (principal)
CPT/HCPCS: 99213

== ENCOUNTER 2025-05-05 12:11 | Outpatient (AMB) | payer OTHER, SELFPAY ==
--- NOTE | 2025-05-05 12:18 | MHC.OFFVIS ---
Vital Signs 05/05/25 12:19 Height 5 ft 7.5 in Weight 236 lb BMI 36.4 BP 122/82 Intake Visit Reasons: Consult for possible ablation Allergies amoxicillin Adverse Reaction (Mild, Verified 05/05/25 12:18) Rash HPI Comments Details: The patient is presenting for consult regarding options of treatment for DUB The following workup was done.: The patient had severe anemia in 09/11 received blood transfusion has been on iron sulfate since then last H&H in 04/11 = 11.8/35.3 TSH, GC and chlamydia were negative. FSH/LH= 39.3/34.2 in the menopausal range Endometrial biopsy pathology showed the following: Endometrium, biopsy: - Superficial fragments of inactive endometrium; no atypia or hyperplasia identified. - Few fragments of benign degenerated endocervical and squamous epithelium Co testing was done in 09/09 was negative. Mammogram BI-RADS 2 in 04/11. Pelvic ultrasound showed the following: IMPRESSION: Nonvisualized right ovary. Unremarkable exam otherwise. [facility] Medical History Encounter for well woman exam with routine gynecological exam Abnormal uterine bleeding (AUB) Asymptomatic cholelithiasis Mild nonproliferative diabetic retinopathy of both eyes associated with diabetes mellitus due to underlying condition Diabetes mellitus with microalbuminuria, without long-term current use of insulin Anemia, iron deficiency Obesity (BMI 30-39.9) Essential hypertension Dyslipidemia Plantar ulcer of right foot Gestational diabetes Surgical History Hx of tubal ligation History of Hx of appendectomy Family History Maternal Grandmother Pancreatic cancer Maternal Grandfather Esophageal cancer Social History Household Members: Spouse Housing: House Patient Tobacco Use Status: Never used Tobacco e-Cigarette/Vaping Use: Never Used service: No Current occupational status: employed Sexual orientation: Straight/Heterosexual Gender identity: Female Cognitive needs: No Hearing needs: No Vision needs: Yes Female Reproductive History Menstrual Age of Menarche: 11 Review of Systems Const All systems reviewed & are unremarkable except as noted in HPI and below Reports as per HPI and Reports no additional complaints GI Reports no additional complaints Reports no additional complaints Physical Exam Vital Signs: Last Vital Signs BP 122/82 05/05/25 12:19 BMI result Body Mass Index 36.4 Assessment & Plan Assessment & Plan (1) Abnormal uterine bleeding (AUB): Code(s): N93.9 - Abnormal uterine and vaginal bleeding, unspecified Category: Medical Plan: Discussed with the patient the workup and options of treatment . All pros and cons risks and benefits of each were discussed with the patient, the patient would like to proceed with definitive surgical management. Discussed with the patient the different types of hysterectomies including, vaginal, laparoscopic assisted vaginal, robotic assisted laparoscopic,& abdominal with BSO. All pros, cons, r/b of each approach were discussed the patient including evidence that morbidity is less and recovery is shorter with minimally invasive approaches to hysterectomy. Discussed with the patient the lack of availability of the robot DaVinci robot and/or minimally invasive rubber roller grinder operator specialist at [facility]. Will refer to [facility] minimally invasive organizational development consultant surgery. Instructed the patient to call our office back in case a referral appointment is not scheduled, missed or canceled so that we will assist on rescheduling another appointment, the patient verbalized understanding agreed with the plan. Coding Level of Care Code Est Pt Level 3 (88552) Diagnoses Abnormal uterine bleeding (AUB) N93.9
[2025-05-05 12:19] VITALS: BP 122/82; BMI 36.4
== END 2025-05-05 12:50 | disposition home or self-care (01) ==
LOC: HO.HWS 12:12
PROVIDERS: PCP Internal Medicine; Visit Provider Obstetrics & Gynecology
DX: N93.9 Abnormal uterine and vaginal bleeding, unspecified (principal)
CPT/HCPCS: 99213

== ENCOUNTER 2025-06-14 08:26 | Outpatient (REF) | payer OTHER, SELFPAY ==
[2025-06-14 13:34] LABS: MANUAL DIFF FLAG NO
[2025-06-14 13:40] LABS: Hematocrit 37.4 % (37.0-47.0); Hemoglobin 12.3 g/dl (12.0-16.0); Imm Gran Abs Auto 0.02 X10*3/uL (0.00-0.03); Imm Gran Pct Auto 0.3 % (0.0-0.4); Lymphocytes Absolute Auto 2.2 X10*3/uL (1.2-4.9); Mean Corpuscular HGB Conc 32.9 g/dl (31.0-35.0); Mean Corpuscular Hemoglobin 29.1 pg (27.0-33.0); Mean Corpuscular Volume 88.4 fL (80.0-98.0); NRBC Abs Auto 0.000 X10*3/uL (0.0-0.012); NRBC Pct Auto 0.0 /100WBC (0.0-0.2); Platelet Count 215 X10*3/uL (160-400); Red Blood Count 4.23 X10*6/uL (4.20-5.50); White Blood Count 7.8 X10*3/uL (4.8-10.8)
[2025-06-14 14:24] LABS: Alanine Aminotransferase 32 U/L (0-31); Anion Gap 13 (12-20); Aspartate Amino Transferase 38 U/L (5-31); Blood Urea Nitrogen 37 mg/dL (9-16); Calcium 10.0 mg/dL (8.4-10.2); Carbon Dioxide 23 mmol/L (22-29); Chloride 106 mmol/L (96-108); Cholesterol 134 mg/dL (<200); Estimated Glomerular Filt Rate 52; HDL Cholesterol 48 mg/dL (>40); Iron 136 mcg/dL (30-160); Percent Iron Saturation 48 % (15-50); Potassium 4.7 mmol/L (3.3-5.1); Sodium 137 mmol/L (135-145); Total Iron Binding Capacity 282 mcg/dL (228-428); Triglycerides 122 mg/dL (<150); Unsaturated Iron Binding 146 ug/dL
== END 2025-06-14 08:27 | disposition home or self-care (01) ==
LOC: HO.HMGCLDS 08:26
PROVIDERS: PCP Internal Medicine; Visit Provider Internal Medicine
DX: I10 Essential (primary) hypertension (principal); E78.5 Hyperlipidemia, unspecified; E11.29 Type 2 diabetes mellitus with other diabetic kidney complication; E11.3293 Type 2 diabetes mellitus with mild nonproliferative diabetic retinopathy without macular edema, bilateral; R80.9 Proteinuria, unspecified; D50.9 Iron deficiency anemia, unspecified; N93.9 Abnormal uterine and vaginal bleeding, unspecified; Z23 Encounter for immunization; Z79.899 Other long term (current) drug therapy
CPT/HCPCS: 36415; 80048; 80061; 82306; 83036; 83540; 84450; 84460; 85025; 90471; 90656; 96127

== ENCOUNTER 2025-06-14 08:26 | Outpatient (AMB) | payer OTHER, SELFPAY ==
[2025-06-14 08:48] VITALS: BP 130/70; PULSE 58; RESP 15; TEMP 36.4; O2SAT 97; BMI 35.3
--- NOTE | 2025-06-14 08:48 | A.OFFPC_ITS ---
Vital Signs 06/14/25 08:48 Height 5 ft 7.5 in Weight 229 lb BMI 35.3 BP 130/70 Blood Pressure Location Rt brachial Position Sitting Respiration 15 Pulse 58 Pulse Source Pulse Oximeter Temp 97.6 F Temp Source Oral Pulse Oximetry (%) 97 Oxygen Delivery Method Room Air Intake Visit Reasons: med refill Intake Note: Pt is here today for a b/p check and med refill [employer] Magistrate Required: No Allergies amoxicillin Adverse Reaction (Mild, Verified 06/14/25 09:09) Rash Medication List - Last Reconciled 06/14/25 by Briana Slaughter MD blood-glucose meter (OneTouch Ultra2 Meter) As directed ferrous sulfate (Feosol) 325 mg PO BID hydrochlorothiazide 12.5 mg PO DAILY lancets test blood sugar once a day lisinopril 10 mg PO DAILY metformin ER 750 mg PO QPM OneTouch Ultra Test (blood sugar diagnostic) test blood sugar once a day before a meal NS rosuvastatin 5 mg PO 2XW 90 days Tobacco use date assessed: 06/14/25 Dental Screening Dental Screen Date: 06/14/25 Did you have a dental visit in the last 12 months?: Yes Did you have a dental problem in the last 6 months where you did not have access to dental care?: No Was dental information given to patient?: Patient has dentist [facility] Medical History Encounter for well woman exam with routine gynecological exam Abnormal uterine bleeding (AUB) Asymptomatic cholelithiasis Mild nonproliferative diabetic retinopathy of both eyes associated with diabetes mellitus due to underlying condition Diabetes mellitus with microalbuminuria, without long-term current use of insulin Anemia, iron deficiency Obesity (BMI 30-39.9) Essential hypertension Dyslipidemia Plantar ulcer of right foot Gestational diabetes Surgical History Hx of tubal ligation History of Hx of appendectomy Family History Maternal Grandmother Pancreatic cancer Maternal Grandfather Esophageal cancer Social History Household Members: Spouse Housing: House Patient Tobacco Use Status: Never used Tobacco e-Cigarette/Vaping Use: Never Used service: No Current occupational status: employed Sexual orientation: Straight/Heterosexual Gender identity: Female Cognitive needs: No Hearing needs: No Vision needs: Yes Female Reproductive History Menstrual Age of Menarche: 11 Questionnaire PHQ-9 Over the last 2 weeks, how often have you been bothered by any of the following problems? 1. Little interest or pleasure in doing things: not at all 2. Feeling down, depressed, or hopeless: not at all 3. Trouble falling or staying asleep, or sleeping too much: not at all 4. Feeling tired or having little energy: not at all 5. Poor appetite or overeating: not at all 6. Feeling bad about yourself - or that you are a failure or have let yourself or your family down: not at all 7. Trouble concentrating on things, such as reading the newspaper or watching television: not at all 8. Moving or speaking so slowly that other people could have noticed. Or the opposite - being so fidgety or restless that you have been moving around a lot more than usual: not at all 9. Thoughts that you would be better off or of hurting yourself in some way: not at all Total score: 0 Depression Screening Interpretation: Negative Depression Screening Done: Yes Source: Developed by Drs. Sea Moran, Marilyn Watkins, Mookie Brady and colleagues, with an educational marquise from [employer]. Thrive Questionnaire Date Thrive assessed: 09/13/24 I am a: Patient What is your living situation today?: I have a steady place to live Within the past 12 months, did the food you bought not last and you didn't have the money to get more?: Never true Within the past 12 months, did you worry whether your food would run out before you got money to buy more?: Never true Do you have trouble paying for medicines?: No Do you have trouble getting transportation to medical appointments?: No Do you have trouble paying your heating and electricity bill?: No Do you have trouble taking care of your child, family member or friend?: No Do you have trouble with day-to-day activities such as bathing, preparing meals, shopping, managing finances, etc.?: No Are you currently unemployed and looking for a job?: No Are you interested in more education?: No Please select the resources that you would like help with: None Currently or been in a relationship where the following occur: No concerns reported THRIVE Score: 0 AUDIT C Alcohol Use Questionnaire (AUDIT-C) 1. How often do you have a drink containing alcohol?: Monthly or less 2. How many drinks containing alcohol do you have on a typical day when you are drinking?: 1 or 2 3. How often do you have six or more drinks on one occasion?: Never Total Score: 1 ROMEO-7 AMB Questionnaire ROMEO-7 Date ROMEO - 7 assessed: 09/16/24 Feeling nervous, anxious, or on edge: 0 = Not at all Not being able to stop or control worryin = Not at all Worrying too much about different things: 0 = Not at all Trouble relaxin = Not at all Being so restless that it is hard to sit still: 0 = Not at all Becoming easily annoyed or irritable: 0 = Not at all Feeling afraid as if something awful might happen: 0 = Not at all Total ROMEO-7 score (0-4 normal; 5-9 mild; 10-14 moderate; 15-21 severe): 0 Source: Developed by Drs. eSa Moran, Marilyn Watkins, Mookie Brady and colleagues, with an educational marquise from [employer]. Physical exam (Primary Care) Vital Signs: Last Vital Signs Temp 97.6 F 06/14/25 08:48 Pulse 58 06/14/25 08:48 Resp 15 06/14/25 08:48 BP 130/70 06/14/25 08:48 Pulse Ox 97 06/14/25 08:48 Oxygen Delivery Method Room Air 06/14/25 08:48 BMI result Body Mass Index 35.3 Tobacco/Smoking Status: Tobacco use Status Tobacco use date assessed 06/14/25 06/14/25 08:53 Patient Tobacco Use Status Never used Tobacco 06/14/25 08:49 e-Cigarette/Vaping Use Never Used 06/14/25 08:49 PHQ-9: PHQ-9 Score PHQ-9: Total score 0 06/14/25 09:09 Depression Screening Interpretation: Negative Thrive Assessment: Date of Thrive Assessment Date Thrive assessed 09/13/24 06/14/25 08:49 Currently or been in a relationship where the following occur: No concerns reported Office Procedures Flu Questionnaire Does the patient have a severe egg allergy?: No Does the patient have severe life threatening allergies?: No Does the patient have a fever or illness today?: No Has the patient ever had Guillain-Houston Syndrome?: No Has the patient ever had any past reaction to a flu shot?: No Results AMB Hemoglobin A1c AMB Hemoglobin A1c 5.3 % Last Edit by Sheila Elliott CMA on 06/14/25 09:09 Immunizations Fluarix [id number] (PF) 45 mcg (15 mcg x 3)/0.5 mL IM syringe Performing Provider: Briana Slaughter MD Performing Location: [facility] Administered by: Sheila Elliott CMA on 06/14/25 09:06 Dose Route Admin Location Dispensed Lot Number Expiration Date NDC [employer] 0.5 mL IM Right Deltoid 0.5 mL [id number] 02/14/26 [id number] [employer] VIS Given Date VIS Provided VIS Publication Date 06/14/25 Single Vaccine 24 Eligibility Eligibility Date Funding Source Not [facility] Eligible 06/14/25 Private Results Reviewed Results Reviewed: Laboratory Last Values Hgb A1c (Clinic) 5.3 % (4.0-6.0) 06/14/25 09:00 Coding Diagnoses Essential hypertension I10 Dyslipidemia E78.5 Diabetes mellitus with microalbuminuria, without long-term current use of insulin E11.29; R80.9 Mild nonproliferative diabetic retinopathy of both eyes associated with diabetes mellitus due to underlying condition E08.3293 Anemia, iron deficiency D50.9 Assessment & Plan Assessment & Plan (1) Essential hypertension: Code(s): I10 - Essential (primary) hypertension Category: Medical (2) Dyslipidemia: Code(s): E78.5 - Hyperlipidemia, unspecified Category: Medical (3) Diabetes mellitus with microalbuminuria, without long-term current use of insulin: Code(s): E11.29 - Type 2 diabetes mellitus with other diabetic kidney complication; R80.9 - Proteinuria, unspecified Category: Medical (4) Mild nonproliferative diabetic retinopathy of both eyes associated with diabetes mellitus due to underlying condition: Comment: Up-to-date with her diabetes retinopathy screening, goes to [facility] and seen by Dr.Noam Boogie 11/24/2023 Code(s): E08.3293 - Diabetes mellitus due to underlying condition with mild nonproliferative diabetic retinopathy without macular edema, bilateral Category: Medical (5) Anemia, iron deficiency: Code(s): D50.9 - Iron deficiency anemia, unspecified Category: Medical Orders: Orders AMB Hemoglobin A1c Today E11.29 - Type 2 diabetes mellitus with other diabetic kidney complication, R80.9 - Proteinuria, unspecified Influenza [id number] Immunization Today Z23 - Encounter for immunization Complete Blood Count Auto Diff Today D50.9 - Iron deficiency anemia, unspecified, E08.3293 - Diabetes mellitus due to underlying condition with mild nonproliferative diabetic retinopathy without macular edema, bilateral, E11.29 - Type 2 diabetes mellitus with other diabetic kidney complication, E78.5 - Hyperlipidemia, unspecified, I10 - Essential (primary) hypertension, R80.9 - Proteinuria, unspecified Lipid Panel Today D50.9 - Iron deficiency anemia, unspecified, E08.3293 - Diabetes mellitus due to underlying condition with mild nonproliferative diabetic retinopathy without macular edema, bilateral, E11.29 - Type 2 diabetes mellitus with other diabetic kidney complication, E78.5 - Hyperlipidemia, unspecified, I10 - Essential (primary) hypertension, R80.9 - Proteinuria, unspecified IRON PROFILE Today D50.9 - Iron deficiency anemia, unspecified, E08.3293 - Diabetes mellitus due to underlying condition with mild nonproliferative diabet ic retinopathy without macular edema, bilateral, E11.29 - Type 2 diabetes mellitus with other diabetic kidney complication, E78.5 - Hyperlipidemia, unspecified, I10 - Essential (primary) hypertension, R80.9 - Proteinuria, unspecified Aspartate Amino Transferase Today D50.9 - Iron deficiency anemia, unspecified, E08.3293 - Diabetes mellitus due to underlying condition with mild nonproliferative diabetic retinopathy without macular edema, bilateral, E11.29 - Type 2 diabetes mellitus with other diabetic kidney complication, E78.5 - Hyperlipidemia, unspecified, I10 - Essential (primary) hypertension, R80.9 - Proteinuria, unspecified Basic Metabolic Panel Fasting Today D50.9 - Iron deficiency anemia, unspecified, E08.3293 - Diabetes mellitus due to underlying condition with mild nonproliferative diabetic retinopathy without macular edema, bilateral, E11.29 - Type 2 diabetes mellitus with other diabetic kidney complication, E78.5 - Hyperl ipidemia, unspecified, I10 - Essential (primary) hypertension, R80.9 - Proteinuria, unspecified Alanine Aminotransferase Today D50.9 - Iron deficiency anemia, unspecified, E 08.3293 - Diabetes mellitus due to underlying condition with mild nonproliferative diabetic retinopathy without macular edema, bilateral, E11.29 - Type 2 diabetes mellitus with other diabetic kidney complication, E78.5 - Hyperlipidemia, unspecified, I10 - Essential (primary) hypertension, R80.9 - Proteinuria, unspecified Vitamin D 25-OH Total Today D50.9 - Iron deficiency anemia, unspecified, E08.3293 - Diabetes mellitus due to underlying condition with mild nonproliferative diabetic retinopathy without macular edema, bilateral, E11.29 - Type 2 diabetes mellitus with other diabetic kidney complication, E78.5 - Hyperlipidemia, unspecified, I10 - Essential (primary) hypertension, R80.9 - Proteinuria, unspecified Medications: Refilled hydrochlorothiazide 12.5 mg PO DAILY 90 tabs 3RF
--- OUTSIDE RECORDS SUMMARY | 2025-06-14 09:03 | XMS_ITS ---
Author Organization Unknown ENCOUNTERS Encounter Performer Location Date Diagnosis Diagnosis Status Emergency [facility] [address] [address] [id number] ANNIE Pre Admit [facility] [address] [address] [id number] Pre Admit [address] [address] [id number] Outpatient [address] [address] [id number] ANNIE *Note: Encounters from your own facility or health system may be excluded. Allergies, Adverse Reactions, Alerts Allergen Type Severity Identification Date amoxicillin drug allergy 2 [id number] Medications Name Date Quantity Days Supplied GPI Number
--- OUTSIDE RECORDS SUMMARY | 2025-06-14 09:03 | XMS_ITS | Patient Health Record ---
Author Organization [facility] Address [address] [place] [id number] Care Team Providers Care Mfts Name Role Phone Sukhjinder PHELAN, Briana Primary [...] at 5:00 p.m. the day before the procedure; Duration: 1 day 03/12/2023 Active OneTouch Ultra 2 w/Device ; Duration: 30 Active Lisinopril 5 MG TAKE 1 TABLET BY WINNIE TH EVERY DAY Oral; Duration: 90 Active Rosuvastatin Calcium 5 MG TAKE ONE TABLE T ORALLY 2 TIMES A WEEK FOR 90 DAYS Oral; Duration: 90 Active metFORMIN HCl 1000 MG Oral; Duration: 90 Active Immunizations Vaccine Route Administration Date [...] Problem Status W/U Status Risk Notes Problem Colon cancer screening (457580418) Colon cancer screening (Z12.11) Active confirmed Problem Pre-procedure evaluation check (326202078) Encounter for other preprocedural examination (Z01.818) Active confirmed Problem Long-term current use of drug therapy (087016589) director long term care (current) use of oral hypoglycemic drugs (Z79.84) Active confirmed Plan Of Treatment Future Test Test Name Order Date COLONOSCOPY 03/12/2023 Insurance Providers Payer Name Payer Address Payer Phone Subscriber Number Group Number Insured Name Patient Relationship to Insured Coverage Start Date Coverage End Date [facility] [address] [place] [address] [phone] [id number] TORSTEN ALVAREZ Self - patient is the insured Medical (General) History Medical History History ICD Code Diabetes mellitus type 2 Hyperlipidemia Hypertension Elevated body mass index Surgical History Surgery Date(Month/Year) Appendectomy 1984 section x2 1996,2001 Tubal ligation 2001
--- OUTSIDE RECORDS SUMMARY | 2025-06-14 09:03 | XMS_ITS | Patient Health Record ---
Author Organization [facility] Address [address] [facility] [address] [place] [address] Care Team Providers Care Associate Sales Name Role Phone Sukhjinder PHELAN, Briana Carrero Primary Care Provider Un available AhmetAlexus zavala Unavailable [phone] Barreto, Chel Unavailable [phone] Allergies Allergen (clinical drug ingredient) Drug/Non Drug [...] W/U Status Risk Notes Problem Plantar wart (05031223) Plantar wart (B07.0) Active confirmed Problem Acquired hammer toe of left foot ([id number] ) Hammer toe of left foot (M20.42) Active confirmed Problem Type II diabetes mellitus without complication (988135884) Type 2 diabetes mellitus without complication, without long-term current use of insulin (E11.9) Active confirmed Vital Signs Blood pressure diastolic 65 mm Hg 03/23/2025 Height 5 ft 7 in in 03/23/2025 Blood pressure systolic 128 mm Hg 03/23/2025 Weight 230 lbs 03/23/2025 BMI 36.02 kg/m2 03/23/2025 Procedures Procedure Date Ordered Date Performed Result Body Sit e 61835-Noyn Destruction, 08-3103/23/2025 N/A Encounters Encounter Location Date Provider Diagnosis [facility] [address] [address] 03/23/2025 Chel Barreto Right foot pain M79.671 and Plantar wart B07.0 [facility] [address] [address] 03/23/2025 Alexus Childers Assessments Encounter Date Diagnosis (ICD Code) Assessment Notes Treatment Notes Treatment Clinical Notes Section Notes 03/23/2025 Right foot pain (ICD-10 - M79.671) 03/23/2025 Plantar wart (ICD-10 - B07.0) Plan Of Treatment Pending Test Test Name Order Date 09905-Lnad Destruction, 08-3103/23/2025 Insurance Providers Payer Name Payer Address Payer Phone Subscriber Number Group Number Insured Name Patient Relationship to Insured Coverage Start Date Coverage End Date [facility] re-[id number] [address] [address] [place] [address] [phone] [id number] Lorna Dickson Self - patient is the insured Medical (General) History Medical History History ICD Code Diabetes mellitus Chicken pox Surgical History Surgery Date(Month/Year) appendectomy 1984 section 06/24/1997, 01/29/2002 tubal ligation 01/29/2002
== END 2025-06-14 10:18 | disposition home or self-care (01) ==
LOC: HO.HMCC 08:27
PROVIDERS: PCP Internal Medicine; Visit Provider Internal Medicine
DX: E11.29 Type 2 diabetes mellitus with other diabetic kidney complication (principal); R80.9 Proteinuria, unspecified; Z23 Encounter for immunization